=== PATIENT | female | born 1935 | race Caucasian/White ===

== ENCOUNTER → 2016-12-11 | Outpatient (CLI) | payer MEDICARE ==
[~2016-12-11] MED LIST: ASCO500C14; ASP81CT; CALC-793; CLD600T; CNDS16T; DLT120CCR; E400C; GARLIC 500 MG; GLUC1TAB60; HYDR-757 PO; LOSA100T28 PO; MULT1TAB63; NIA500ERT; OXYC-197 PO; RANI-425 PO; RNT150T; TRZ50T; [UNRECOGNIZED DRUG - OTHER]; [UNRECOGNIZED DRUG - OTHER]; [UNRECOGNIZED DRUG - OTHER]
--- NOTE | 2016-12-11 16:31 | Diagnostic Imaging Report ---
INDICATION: Fall. Trauma to the face and nose. COMPARISON: None. FINDINGS: Examination of the facial bones fails to reveal evidence of fracture, dislocation or other osseous abnormality. The accessory nasal sinuses are clear. IMPRESSION: Negative facial bones. Dictated by: Dictated on workstation # [id number]
== END ==
LOC: RAD 15:27
DX: R51 Headache (principal)
CPT/HCPCS: 70150

== ENCOUNTER → 2017-01-02 | Day surgery (SDC) | payer MEDICARE ==
[~2017-01-02] VITALS: Ht 157.5 cm; Wt 59.0 kg
[~2017-01-02] MED LIST changes: +PEN G BENZ (BICILLIN LA) 1.2 M UN/2 ML SYR IM ONE
--- OUTSIDE RECORDS SUMMARY | 2017-01-02 15:27 | XMS REPORT | Clinical Summary ---
Author Author [facility] Organization [facility] Address Unknown Phone Unavailable Care Team Providers Care Armature Varnisher Name Role Phone PCP Unavailable Source Comments Some departments are not documenting in the electronic medical record. If you do not see the information that you expected, contact Release of Information in the Health Information Management department at [phone] for further assistance in locating additional records.[facility] Allergies Active Allergy Reactions Severity Noted Date Comments Nathanael Inhibitors JOINT PAIN 04/06/2012 Won't control Fluticasone-Salmeterol SHORTNESS OF BREATH 04/08/2012 Makes breathing worse Albuterol SEE COMMENTS 04/06/2012 Shaking inside extensively Beta-Blockers JOINT PAIN 04/06/2012 Won't control (Beta-Adrenergic Blocking Agts) Levofloxacin SEE COMMENTS 04/06/2012 Extreme Attacks muscles and joints Niacin HIVES, SEE COMMENTS 04/06/2012 Burning Unclassified Drug SEE COMMENTS 04/06/2012 Calcium Channel Blockers Rxfncnt-Orr-Sms Reductase JOINT PAIN 04/06/2012 Inhibitors Pseudoephedrine Hcl SEE COMMENTS 04/06/2012 Blood pressure shoots up Tetracyclines SEE COMMENTS 04/06/2012 Extreme Attacks muscles and joints Current Medications Prescription Sig. Disp. Refills Start End Date Status Date CANDESARTAN CILEXETIL Take 32 mg by mouth Active (ATACAND PO) daily. Aspirin 81 mg Tab Take by mouth. Active MULTIVITAMIN Take 1 Tab by mouth Active W-MINERALS/LUTEIN daily. (CENTRUM SILVER PO) ascorbic acid (VITAMIN C) Take 500 mg by mouth Active 500 mg tablet daily. CALCIUM CARBONATE Take 1 Tab by mouth twice Active (CALCIUM 600 PO) daily. vitamin A 25,000 unit cap Take 25,000 Units by Active mouth daily. Betacarotene coQ10 (ubiquinol) 100 mg Take 1 Cap by mouth Active cap daily. ERGOCALCIFEROL (VITAMIN Take 400 mg by mouth Active D2) (VITAMIN D PO) twice daily. ipratropium (ATROVENT) 1-2 sprays each nostril 1 Bottle 3 04/08/19 Active 0.03 % nasal up to three times a day, 13 sprayIndications: Chronic use just prior to meals. 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 Reactions occurred in early with onset less than one week postoperatively. Reaction included erythema, swelling and pain in the distal foot which resolved within 2 weeks of implant removal. She has had contact irritation with costume jewelry, but has tolerated dental implants (lummi and gold) in the past. 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 Chronic rhinitis 04/08/2012 Overview: Onset after laser surgery to remove precancerous lesion from nasal bridge about 5 years ago. No seasonal pattern. Previous allergic respiratory disease (asthma and allergic rhinitis) in the s. She was referred to an [employer] Operator and had aeroallergen testing that was positive to multiple allergens. Symptoms resolved after relocating to [place]. Rhinorrhea worse with eating, suggestive of gustatory rhinitis. - Family History Relation Name Status Comments Brother Ricco Alive Brother Navdeep Daughter Britany Alive Daughter Huyen Alive Daughter Kirstie Alive Father Juan Mother Mable Other Sister Lorna Alive Son Julius Alive Social History Tobacco Use Types Packs/Day Years Used Date Never Smoker Alcohol Use Drinks/Week oz/Week Comments No Sex Assigned at Date Recorded Not on file Last Filed Vital Signs Vital Sign Reading Time Taken Blood Pressure 151/79 04/08/2012 2:20 PM SOLUTION MIXER Pulse 84 04/08/2012 2:20 PM SOLUTION MIXER Temperature 36.6 C (97.9 F) 04/08/2012 2:20 PM SOLUTION MIXER Respiratory Rate 18 04/08/2012 2:20 PM SOLUTION MIXER Oxygen Saturation - - Inhaled Oxygen - - Concentration Weight 68.5 kg (151 lb) 04/08/2012 2:20 PM SOLUTION MIXER Height 154.9 cm (5' 1") 04/08/2012 2:20 PM SOLUTION MIXER Body Mass Index 28.53 04/08/2012 2:20 PM SOLUTION MIXER Plan of Treatment Health Maintenance Due Date Last Done Comments PHYSICAL (COMPREHENSIVE) 02[birth year]01/1942 EXAM PERTUSSIS VACCINE 02/01/1947 TETANUS VACCINE 02/01/1953 SHINGLES VACCINE 1996 OSTEOPOROSIS SCREENING 02/01/2001 PREVNAR/PNEUMOVAX (#1) 02/01/2001 INFLUENZA VACCINE 10/01/2016 Results Not on filefrom Last 3 Months
--- OUTSIDE RECORDS SUMMARY | 2017-01-02 15:32 | XMS REPORT | Continuity of Care Document ---
Author Author [facility] Organization [facility] Address Unknown Phone Unavailable Allergies Active Description Code Type Severity Reaction Onset Reported/Identified Relationship to Patient Clinical Status Yes atenolol [id number] Drug Allergy Unknown N/A 04/07/2008 Yes cholestyramine [id number] Drug Allergy Unknown N/A 04/07/2008 Yes ezetimibe [id number] Drug Allergy Unknown N/A 04/07/2008 Yes rosuvastatin [id number] Drug Allergy Unknown N/A 04/07/2008 Yes tetracycline [id number] Drug Allergy Unknown N/A 04/07/2008 Yes albuterol [id number] Drug Allergy Mild N/A 04/07/2009 Yes ALYSON Inhibitors [id number] Drug Allergy Mild N/A 04/08/2009 Yes BETA BLOCKERS BETA BLOCKERS Mild N/A 04/08/2009 Yes pseudoephedrine [id number] Drug Allergy Mild N/A 04/08/2009 Yes STATINS STATINS Mild N/A 04/08/2009 Yes Calcium Channel Blocking Agent Dilt [id number] Drug Allergy Mild N/A 01/02/2015 Yes levofloxacin [id number] Drug Allergy Mild N/A 01/02/2015 Medications Problems Date Dx Coded Attending Type Code Diagnosis Diagnosed By 02/23/2014 BLANCA NEGRON APRN Ot 723.1 02/23/2014 BLANCA NEGRON SALES ADMINISTRATION SPECIALIST Ot 847.0 02/23/2014 BLANCA NEGRON SALES ADMINISTRATION SPECIALIST Ot 850.9 02/23/2014 BLANCA NEGRON SALES ADMINISTRATION SPECIALIST Ot E000.8 02/23/2014 BLANCA NEGRON SALES ADMINISTRATION SPECIALIST Ot E888.9 03/28/2014 BLANCA NEGRON SALES ADMINISTRATION SPECIALIST Ot 784.0 03/28/2014 BLANCA NEGRON SALES ADMINISTRATION SPECIALIST Ot V15.59 01/02/2015 GARRY ANDRADE, MAURICIO Mckee Ot I10 01/02/2015 GARRY ANDRADE, MAURICIO T Ot R11.0 01/02/2015 GARRY ANDRADE, MAURICIO T Ot R51 06/29/2015 BLANCA NEGRON APRN Ot M19.032 PRIMARY OSTEOARTHRITIS, LEFT WRIST 06/29/2015 BLANCA NEGRON APRN Ot S52.532A COLLES' FRACTURE OF LEFT RADIUS, INIT FO 06/29/2015 BLANCA NEGRON APRN Ot W01.0XXA FALL SAME LEV FROM SLIP/TRIP W/O STRIKE 06/29/2015 BLANCA NEGRON APRN Ot Y92.017 GARDEN OR YARD IN SINGLE-FAMILY ( PRIVATE 06/29/2015 BLANCA NEGRON SALES ADMINISTRATION SPECIALIST Ot Y93.H2 ACTIVITY, GARDENING AND LANDSCAPING 06/29/2015 BLANCA NEGRON APRN Ot Y99.8 OTHER EXTERNAL CAUSE STATUS 06/30/2015 BALNCA NEGRON SALES ADMINISTRATION SPECIALIST Ot M19.032 PRIMARY OSTEOARTHRITIS, LEFT WRIST 06/30/2015 BLANCA NEGRON SALES ADMINISTRATION SPECIALIST Ot S52.532A COLLES' FRACTURE OF LEFT RADIUS, INIT FO 06/30/2015 BLANCA NEGRON APRN Ot W01.0XXA FALL SAME LEV FROM SLIP/TRIP W/O STRIKE 06/30/2015 BLANCA NEGRON SALES ADMINISTRATION SPECIALIST Ot Y92.017 GARDEN OR YARD IN SINGLE-FAMILY ( PRIVATE 06/30/2015 BLANCA NEGRON APRN Ot Y93.H2 ACTIVITY, GARDENING AND LANDSCAPING 06/30/2015 BLANCA NEGRON SALES ADMINISTRATION SPECIALIST Ot Y99.8 OTHER EXTERNAL CAUSE STATUS 07/01/2015 JEAN PIERRE BANDA MD Ot S52.502D UNSP FX THE LOW END LEFT RAD, SUBS FOR C 07/03/2015 JEAN PIERRE BANDA MD Ot S52.502D UNSP FX THE LOW END LEFT RAD, SUBS FOR C 12/17/2016 LAUREN MARTINEZ MD Ot R51 HEADACHE Procedures Results Encounters ACCT No. Visit Date/Time Discharge Status Pt. Type Provider Facility Loc./Unit Complaint [id number] 12/11/2016 15:27:00 2016 23:59:59 CLS Outpatient LAUREN MARTINEZ MD [facility] RAD R51 [id number] 07/01/2015 19:44:00 2015 20:06:00 DIS Emergency JEAN PIERRE BANDA MD [facility] ER [id number] 06/29/2015 15:50:00 2015 17:46:00 DIS Emergency BLANCA NEGRON APRN [facility] ER [id number] 01/02/2015 19:24:00 2014 21:22:00 DIS Emergency MAURICIO CASTAÑEDA MD [facility] ER [id number] 03/28/2014 17:25:00 2014 18:56:00 DIS Emergency BLANCA NEGRON APRN [facility] ER [id number] 02/23/2014 19:11:00 2013 20:01:00 DIS Emergency BLANCA NEGRON APRN [facility] ER [id number] 02/05/2013 10:20:00 2012 23:59:59 CLS Outpatient [id number] 01/02/2015 20:03:00 Document Registration
--- NOTE | 2017-01-02 16:02 | Diagnostic Imaging Report ---
INDICATION: Acute bronchitis. PA and lateral views of the chest are obtained. Comparison is made to study of 01/02/2015. FINDINGS: Heart size and pulmonary vascularity are within normal limits. There is air trapping, bilaterally. There is probable hiatal hernia noted in the midline of the lower chest. No pneumothorax, consolidation, or significant pleural fluid is seen. Prominent spurring is noted about the inferior left humeral head. IMPRESSION: No acute abnormality is identified. Density in the lower chest is likely related to hiatal hernia. This could be confirmed with upper GI series. Otherwise, no acute abnormality is identified. Dictated by: Dictated on workstation # [id number]
[2017-01-02 16:19] VITALS: BP 168/99
--- NOTE | 2017-01-02 16:19 | Diagnostic Imaging Report ---
AP and frog lateral views of the left hip. INDICATION: Left hip pain. Fall. FINDINGS: There are moderate osteoarthritis changes with subchondral sclerosis and mild to moderate joint space loss seen in the hip. No fracture or dislocation. No radiopaque foreign body. IMPRESSION: Moderate left hip osteoarthritis. Dictated by: Dictated on workstation # [id number]
[2017-01-02 16:34] VITALS: BP 168/99
== END | disposition home or self-care (01) ==
LOC: SDC 14:49 → RAD 14:49
DX: J20.9 Acute bronchitis, unspecified (principal); M16.12 Unilateral primary osteoarthritis, left hip
CPT/HCPCS: 71020; 73502

== ENCOUNTER → 2017-04-15 | Outpatient (CLI) | payer MEDICARE ==
[~2017-04-15] MED LIST changes: -PEN G BENZ (BICILLIN LA) 1.2 M UN/2 ML SYR IM ONE
--- NOTE | 2017-04-15 14:51 | Diagnostic Imaging Report ---
INDICATION: Back pain and left lower extremity radiculopathy. TIME OF EXAM: 2:38 PM FINDINGS: Three views of the lumbar spine demonstrate left convexity lumbar scoliotic curvature. There is diffuse demineralization. The vertebral body heights appear to be maintained. No acute compression fracture is identified. There is significant multilevel degenerative disc disease with disc space narrowing and marginal spurring. The abdominal aorta is heavily calcified. IMPRESSION: Lumbar scoliosis and spondylosis. No acute bony abnormality is detected. Dictated by: Dictated on workstation # [id number]
== END ==
LOC: RAD 14:06
DX: M47.26 Other spondylosis with radiculopathy, lumbar region (principal); M41.86 Other forms of scoliosis, lumbar region
CPT/HCPCS: 72100

== ENCOUNTER → 2017-04-28 | Outpatient (CLI) | payer MEDICARE ==
--- NOTE | 2017-04-28 13:07 | Diagnostic Imaging Report ---
CLINICAL INDICATION: Patient having pain in left sciatica with pain shooting down her leg. EXAM: MRI of the lumbar spine performed without IV contrast. Sequences include sagittal T2, sagittal T1, sagittal T2 fat-sat, and axial T2. COMPARISON: MRI of the lumbar spine without contrast dated 12/14/2009. FINDINGS: There is no evidence of acute lumbar spine fracture. Again seen small area of high T2, mixed high/low T1 signal involving the right side of the L1 vertebral body is seen which may represent an atypical intraosseous hemangioma. There is no significant change to the 6 mm low T1/low T2 signal area involving the left posterior aspect of the L4 vertebral body, likely benign. There is resolution of the previously seen Modic type I degenerative signal changes involving the L1-L2 and L3-L4 endplate regions. There is no other significant vertebral body signal abnormality. Limited visualization of distal thoracic spinal cord, conus medullaris, and cauda equina nerve roots is unremarkable. The conus medullaris tip is seen at the L1-L2 intervertebral level. There is no significant paraspinal soft tissue abnormality. There are hypertrophic vertebral body spurs and facet arthropathy again noted. There is mild left curvature of the lumbar spine also seen which has slightly progressed. T10-T11: There is bilateral facet arthropathy. There is at least moderate left neuroforaminal narrowing and mild central canal narrowing. This level is not completely visualized on the prior study for comparison. T11-T12: Again seen broad Schmorl's node involving the inferior aspect of T11 endplate. There is bilateral facet arthropathy (left side more than the right) and ligamentum flavum buckling which is not significantly changed. There is a diffuse disc bulge which has minimally progressed in the left paracentral region. There is moderate central canal narrowing which has slightly progressed. There is at least moderate left neuroforaminal narrowing which has slightly progressed. There is no significant right neuroforaminal narrowing. T12-L1: There is no significant change to the diffuse disc bulge with severe loss of intervertebral disc height and endplate irregularity. There is stable mild to moderate central canal narrowing. There is no significant neuroforaminal narrowing. L1-L2: There is no significant change to the diffuse disc bulge with severe loss of intervertebral disc height and endplate irregularity. There is stable moderate bilateral facet arthropathy. There is at least mild right neuroforaminal narrowing and no significant left neuroforaminal narrowing which is not significantly changed. There is moderate central canal narrowing which is stable. L2-L3: Stable grade 1 retrolisthesis of L2 on L3. Stable diffuse disc bulge and mild bilateral facet arthropathy. Stable moderate right neuroforaminal narrowing and mild left neuroforaminal narrowing. There is mild central canal narrowing. L3-L4: Stable grade 1 retrolisthesis of L3 on L4. There is progression of disc disease with now progression of endplate irregularity and moderate to severe loss of intervertebral disc height. There is slight increased size of the far left lateral and foraminal disc herniation. There is severe left neuroforaminal narrowing still present and severe right neuroforaminal narrowing. There is progression of severe bilateral facet arthropathy (right side more than the left). There is mild central canal narrowing. L4-L5: There is interval development of subtle grade 1 anterolisthesis of L4 on L5. There is progression of diffuse disc bulge with slight increased size of the disc bulges into the foraminal regions bilaterally. There is severe bilateral facet arthropathy/hypertrophy which has slightly progressed. There is ligamentum flavum buckling which has progressed. There is now severe central canal narrowing, moderate right neuroforaminal narrowing and severe left neuroforaminal narrowing which has progressed. L5-S1: There is no significant disc disease. There is stable severe bilateral facet arthropathy/hypertrophy. There is no significant central spinal canal or neuroforaminal narrowing. IMPRESSION: 1: There is overall slight progression of severe multilevel lumbar spine degenerative disease and mild lumbar levoscoliosis. 2: There is progression of L3-L4 disc disease with progression of facet arthropathy. There is stable severe bilateral neuroforaminal narrowing. 3: There is development of subtle grade 1 anterolisthesis of L4 on L5 with progression of disc disease, facet arthropathy and ligamentum flavum buckling. There is now severe central canal narrowing, moderate right neuroforaminal narrowing and severe left neuroforaminal narrowing which has progressed. 4: Stable grade 1 anterolisthesis of L2 on L3 and L3 on L4. Dictated by: Dictated on workstation # [id number]
== END ==
LOC: RAD 11:00
DX: M48.061 Spinal stenosis, lumbar region without neurogenic claudication (principal); M47.816 Spondylosis without myelopathy or radiculopathy, lumbar region; M41.86 Other forms of scoliosis, lumbar region; M46.87 Other specified inflammatory spondylopathies, lumbosacral region; M43.16 Spondylolisthesis, lumbar region
CPT/HCPCS: 72148

== ENCOUNTER 2017-09-01 16:40 | Outpatient (CLI) | payer MEDICARE ==
[~2017-09-01] VITALS: Ht 157.5 cm; Wt 59.0 kg
[2017-09-01 17:05] VITALS: BP 192/93
[2017-09-01] MEDS ORDERED: NF-VITD400 PO (17:26)
[2017-09-01] MEDS ORDERED: TRAZ-189 PO (17:26)
[2017-09-01] MEDS ORDERED: GLUC100016 PO (17:26)
[2017-09-01] MEDS ORDERED: MULT1TAB69 PO (17:26)
[2017-09-01] MEDS ORDERED: BETA2500 PO (17:26)
[2017-09-01] MEDS ORDERED: CALC600T12 PO (17:26)
[2017-09-01] MEDS ORDERED: CURAMED PO (17:26)
[2017-09-01] MEDS ORDERED: UBID100C17 PO (17:26)
[2017-09-01] MEDS ORDERED: PEN G BENZ (BICILLIN LA) 1.2 M UN/2 ML SYR IM ONE (17:30)
--- NOTE | 2017-09-01 18:03 | Diagnostic Imaging Report ---
INDICATION: Cough. COMPARISON: 01/02/2017. FINDINGS: Two views of the chest are obtained. Heart size is normal. The pulmonary vessels appear unremarkable. Mild prominence of the left hilum is unchanged. There is no pneumothorax, mediastinal widening, or pleural fluid. There is however a moderate hiatal hernia which is similar to the prior study. Chronic findings of COPD are again noted. Some scarring at the left lung base is stable. The lungs are otherwise clear. There are degenerative changes in the spine. IMPRESSION: Stable findings of COPD and hiatal hernia. No new or acute abnormality is seen in the chest. Dictated by: Dictated on workstation # [id number]
== END 2017-09-01 17:40 | disposition home or self-care (01) ==
LOC: SDC 16:40
DX: J18.9 Pneumonia, unspecified organism (principal); R05 Cough
CPT/HCPCS: 71046; 96372

== ENCOUNTER 2018-09-19 21:54 | Emergency (ER) | payer MEDICARE ==
[~2018-09-19] VITALS: Ht 157.5 cm; Wt 58.5 kg
[~2018-09-19 21:54] MED LIST changes: +BETA2500 PO; +CALC600T12 PO; +CURAMED PO; +GLUC100016 PO; -LOSA100T28 PO; +LOSA100T57 PO; +MULT1TAB69 PO; +NF-VITD400 PO; -OXYC-197 PO; +OXYC1TAB87 PO; -RANI-425 PO; +RANI-591 PO; +TRAZ-222 PO; +UBID100C17 PO
--- NOTE | 2018-09-19 22:01 | NUR ---
PT HERE WITH " ". PT ALERT GCS 15. PT RELATES SHE RECEIVED STEROID SHOTS IN BOTH SHOULDERS LAST FRIDAY. SINCE THEN PT C/O " FEELING STRANGE". "CANT SLEEP". PT ALSO BEEN C/O CHEST " ACHES" DENIES THIS C/O CURRENTLY SINCE GETTING THE SHOTS AND ALSO BEEN C/O DYSPNEA " HARD TO BREATH" WELL SINCE THE SHOTS. PT QUITE TALKATIVE AND NO AUTE SIGHNS OF DYSPNEA NOTED. PT DOES HAVE A DRY NONPRODUCTIVE COUGH IN ER. PT DENIES ABD PAIN AND N/V/D. LUNGS EQUAL CTA BILATERALLY. ABD SOFT NONDISTENDED NEG PAIN WITH PALPATION. PT HAS 2 PLUS EDEMA BILATERAL LOWER LEGS NOTED. TELE APPLIED SHOWS SR 79. DONE ANJEL PT AT 2210.
--- NOTE | 2018-09-19 22:30 | NUR ---
PT RELATES SHE HAS THE CHEST PAIN " ALL THE TIME"
[2018-09-19 22:37] LABS: BASOPHILS % (AUTO) 0 % (0-10); EOSINOPHILS # (AUTO) 0.1 10^3/uL (0.0-0.3); EOSINOPHILS % (AUTO) 1 % (0-10); HEMATOCRIT 35 % (35-52); HEMOGLOBIN 11.4 G/DL (11.5-16.0); LYMPHOCYTES # (AUTO) 2.8 X 10^3 (1.0-4.0); LYMPHOCYTES % (AUTO) 37 % (12-44); MEAN CORPUSCULAR HEMOGLOBIN 32 PG (25-34); MEAN CORPUSCULAR HGB CONC 32 G/DL (32-36); MEAN CORPUSCULAR VOLUME 99 FL (80-99); MEAN PLATELET VOLUME 10.3 FL (7.4-10.4); MONOCYTES # (AUTO) 0.8 X 10^3 (0.0-1.0); MONOCYTES % (AUTO) 11 % (0-12); NEUTROPHILS % (AUTO) 52 % (42-75); PLATELET COUNT 221 10^3/uL (130-400); RED CELL DISTRIBUTION WIDTH 13.5 % (10.0-14.5); WHITE BLOOD COUNT 7.8 10^3/uL (4.3-11.0)
[2018-09-19] MEDS ORDERED: ASPIRIN 81 MG CHEW (CHILDREN'S ASA) ONE (22:41)
[2018-09-19] MEDS ORDERED: NITROGLYCERIN 0.4 MG SL TABS BTL 25'S SL ONE (22:42)
--- NOTE | 2018-09-19 22:43 | NUR ---
EKG BY ME TO BY
--- NOTE | 2018-09-19 22:52 | NUR ---
V/O DR EARLIER ASA AND NITRO.
--- NOTE | 2018-09-19 22:52 | NUR ---
BEFORE ASA AND NITRO. PT DENIED CHEST PAIN, CHEST ACHINESS, AND CHEST PRESSURE. I WENT TO ASK ALL OVER AGAIN AND PT SAID SHE HAD SOME CHEST PRESSURE. I GAVE ASA AND NITRO
[2018-09-19 22:53] LABS: INR 0.9 (0.8-1.4); PROTHROMBIN TIME PATIENT 12.1 SEC (12.2-14.7)
[2018-09-19 23:02] LABS: ALANINE AMINOTRANSFERASE 11 U/L (0-55); ALKALINE PHOSPHATASE 74 U/L (40-136); BILIRUBIN,TOTAL 0.2 MG/DL (0.1-1.0); BUN/CREATININE RATIO 29; CALCIUM 9.3 MG/DL (8.5-10.1); CARBON DIOXIDE 24 MMOL/L (21-32); CHLORIDE 108 MMOL/L (98-107); CREATININE SERUM 0.89 MG/DL (0.60-1.30); GFR ESTIMATED > 60; GLUCOSE 91 MG/DL (70-105); MAGNESIUM 2.1 MG/DL (1.8-2.4); POTASSIUM 3.9 MMOL/L (3.6-5.0); SODIUM 145 MMOL/L (135-145); TOTAL PROTEIN 6.5 GM/DL (6.4-8.2)
--- NOTE | 2018-09-19 23:15 | NUR ---
pt denies chest pain and pressure and achiness. says " i feel better then when i came in."
[2018-09-19 23:21] VITALS: BP 122/81
--- NOTE | 2018-09-19 23:21 | NUR ---
report to flower vargas.
[2018-09-19] MEDS ORDERED: ASPIRIN 81 MG CHEW (CHILDREN'S ASA) PO ONE (23:30)
[2018-09-19] MEDS ORDERED: NITROGLYCERIN 0.4 MG SL TABS BTL 25'S SL PRN (23:30)
--- OUTSIDE RECORDS SUMMARY | 2018-09-19 23:30 | XMS REPORT | Clinical Summary ---
Author Author [facility] Organization [facility] Address Unknown Phone Unavailable Care Team Providers Care Process Steward Name Role Phone CandepritiJeanette DO Unavailable Andrew Zaidi MD PCP Source Comments Some departments are not documenting in the electronic medical record. If you d o not see the information that you expected, contact Release of Information in [facility] [employer] Information Management department at [phone] for further assistan ce in locating additional records.[facility] Allergies Comments Active Allergy Reactions Severity Noted Date Won't control Nathanael Inhibitors JOINT PAIN 04/06/2012 Makes breathing worse Fluticasone SHORTNESS OF 04/08/2012 Propion-Salmeterol BREATH Shaking inside extensively Albuterol SEE COMMENTS 04/06/2012 Won't control Beta-Blockers JOINT PAIN 04/06/2012 (Beta-Adrenergic Blocking Agts) Extreme Attacks muscles and joints Levofloxacin SEE COMMENTS 04/06/2012 Burning Niacin HIVES, SEE 04/06/2012 COMMENTS Calcium Channel Blockers Unclassified Drug SEE COMMENTS 04/06/2012 Pqnlmha-Xgh-Maq Reductase JOINT PAIN 04/06/2012 Inhibitors Blood pressure shoots up Pseudoephedrine Hcl SEE COMMENTS 04/06/2012 Extreme Attacks muscles and joints Tetracyclines SEE COMMENTS 04/06/2012 Medications End Date Status Medication Sig Dispensed Refills Start Date Active CANDESARTAN CILEXETIL Take 32 mg by 0 (ATACAND PO) mouth daily. Active Aspirin 81 mg Tab Take by 0 mouth. Active MULTIVITAMIN Take 1 Tab by 0 W-MINERALS/LUTEIN mouth daily. (CENTRUM SILVER PO) Active ascorbic acid (VITAMIN C) Take 500 mg 0 500 mg tablet by mouth daily. Active CALCIUM CARBONATE Take 1 Tab by 0 (CALCIUM 600 PO) mouth twice daily. Active vitamin A 25,000 unit cap Take 25,000 0 Units by mouth daily. Betacarotene Active coQ10 (ubiquinol) 100 mg Take 1 Cap by 0 cap mouth daily. Active ERGOCALCIFEROL (VITAMIN Take 400 mg 0 D2) (VITAMIN D PO) by mouth twice daily. Active ipratropium (ATROVENT) 1-2 sprays 1 Bottle 3 0.03 % nasal each nostril 3 sprayIndications: Chronic up to three rhinitis times a day, use just prior to meals. Active Problems Problem Noted Date Allergy to [...] costume jewelry, but has tolerated dental implants ([place] and gold) in the past. 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 Chronic rhinitis 04/08/2012 Overview: Onset after laser surgery to remove precancerous lesion from nasal bridge about 5 years ago. No seasonal pattern. Previous allergic respiratory disease (asthma and allergic rhinitis) in the 1970's. 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 Symptoms resolved after relocating to [place]. Rhinorrhea worse with eating, suggestive of gustatory rhinitis. - Family History Relation Name Status Comments Brother Ricco Alive Brother Navdeep Daughter Britany Alive Daughter Huyen Alive Daughter Kirstie Alive Father Juan Mother Mable Other Sister Lorna Alive Son Julius Alive Social History Date Tobacco Use Types Packs/Day Years Used Never Smoker Drinks/Week oz/Week Comments Alcohol Use No Sex Assigned at Date Recorded Not on file Industry Job Start Date Occupation Not on file Not on file Not on file Travel End Travel History Travel Start No recent travel history available. Last Filed Vital Signs Reading Time Taken Comments Vital Sign 151/79 04/08/2012 2:20 PM IMMIGRATION MANAGER Blood Pressure 84 04/08/2012 2:20 PM IMMIGRATION MANAGER Pulse 36.6 C (97.9 F) 04/08/2012 2:20 PM IMMIGRATION MANAGER Temperature 18 04/08/2012 2:20 PM IMMIGRATION MANAGER Respiratory Rate - - Oxygen Saturation - - Inhaled Oxygen Concentration 68.5 kg (151 lb) 04/08/2012 2:20 PM IMMIGRATION MANAGER With shoes Weight 154.9 cm (5' 1") 04/08/2012 2:20 PM IMMIGRATION MANAGER Height 28.53 04/08/2012 2:20 PM IMMIGRATION MANAGER Body Mass Index Plan of Treatment Health Maintenance Due Date Last Done Comments PHYSICAL (COMPREHENSIVE) 02[birth year]01/1942 EXAM DTAP/TDAP VACCINES (1 - 02/01/1954 Tdap) SHINGLES RECOMBINANT 02/01/1986 VACCINE (1 of 2) OSTEOPOROSIS 02/01/2001 SCREENING/MONITORING PNEUMONIA (PCV13/PPSV23) 02/01/2001 VACCINES (1 of 2 - PCV13) INFLUENZA VACCINE 12/01/2018 Results Not on filefrom Last 3 Months Advance Directives Patient Jewel Hole Gauger Explanation Type Date Recorded Advance Directive/DPOA
--- OUTSIDE RECORDS SUMMARY | 2018-09-19 23:31 | XMS REPORT | Continuity of Care Document ---
Author Organization Unknown Address Unknown Allergies Active Description Code Type Severity Reaction Onset Reported/Identified Relationship to Patient Clinical Status Yes atenolol [id number] Drug Allergy Unknown N/A 04/07/2008 Yes cholestyramine [id number] Drug Allergy Unknown N/A 04/07/2008 Yes ezetimibe [id number] Drug Allergy Unknown N/A 04/07/2008 Yes rosuvastatin [id number] Drug Allergy Unknown N/A 04/07/2008 Yes tetracycline [id number] Drug Allergy Unknown N/A 04/07/2008 Yes albuterol [id number] Drug Allergy Mild N/A 04/07/2009 Yes ALYSON Inhibitors [id number] Drug Allergy Mild N/A 04/08/2009 Yes BETA BLOCKERS BETA BLOCKERS Mild N/A 04/08/2009 Yes pseudoephedrine [id number] Drug Allergy Mild N/A 04/08/2009 Yes STATINS STATINS Mild N/A 04/08/2009 Yes Calcium Channel Blocking Agent Dilt [id number] Drug Allergy Mild N/A 01/02/2015 Yes levofloxacin [id number] Drug Allergy Mild N/A 01/02/2015 Yes Niacin Preparations [id number] Drug Allergy Moderate HIVES 09/01/2017 Yes lorazepam [id number] Drug Allergy Unknown N/A 09/01/2017 Medications There is no data. Problems Date Dx Coded Attending Type Code Diagnosis Diagnosed By 02/23/2014 BLANCA NEGRON ICHTHYOLOGY TEACHER Ot 723.1 02/23/2014 BLANCA NEGRON ICHTHYOLOGY TEACHER Ot 847.0 02/23/2014 BLANCA NEGRON ICHTHYOLOGY TEACHER Ot 850.9 02/23/2014 BLANCA NEGRON ICHTHYOLOGY TEACHER Ot E000.8 02/23/2014 BLANCA NEGRON ICHTHYOLOGY TEACHER Ot E888.9 03/28/2014 BLANCA NEGRON ICHTHYOLOGY TEACHER Ot 784.0 03/28/2014 BLANCA NEGRON ICHTHYOLOGY TEACHER Ot V15.59 01/02/2015 GARRY ANDRADE, MAURICIO Mckee Ot I10 01/02/2015 GARRY ANDRADE, MAURICIO Mckee Ot R11.0 01/02/2015 GARRY ANDRADE, MAURICIO Mckee Ot R51 06/29/2015 BLANCA NEGRON APRN Ot M19.032 PRIMARY OSTEOARTHRITIS, LEFT WRIST 06/29/2015 BLANCA NEGRON APRN Ot S52.532A COLLES' FRACTURE OF LEFT RADIUS, INIT FO 06/29/2015 BLANCA NEGRON APRN Ot W01.0XXA FALL SAME LEV FROM SLIP/TRIP W/O STRIKE 06/29/2015 BLANCA NEGRON APRN Ot Y92.017 GARDEN OR YARD IN SINGLE-FAMILY (PRIVATE 06/29/2015 BLANCA NEGRON APRN Ot Y93.H2 ACTIVITY, GARDENING AND LANDSCAPING 06/29/2015 BLANCA NEGRON APRN Ot Y99.8 OTHER EXTERNAL CAUSE STATUS 06/30/2015 BLANCA NEGRON APRN Ot M19.032 PRIMARY OSTEOARTHRITIS, LEFT WRIST 06/30/2015 BLANCA NEGRON APRN Ot S52.532A COLLES' FRACTURE OF LEFT RADIUS, INIT FO 06/30/2015 BLANCA NEGRON APRN Ot W01.0XXA FALL SAME LEV FROM SLIP/TRIP W/O STRIKE 06/30/2015 BLANCA NEGRON APRN Ot Y92.017 GARDEN OR YARD IN SINGLE-FAMILY (PRIVATE 06/30/2015 BLANCA NEGRON APRN Ot Y93.H2 ACTIVITY, GARDENING AND LANDSCAPING 06/30/2015 BLANCA NEGRON APRN Ot Y99.8 OTHER EXTERNAL CAUSE STATUS 07/01/2015 VERONIKA ANDRADE, JEAN PIERRE Mendez Ot S52.502D UNSP FX THE LOW END LEFT RAD, SUBS FOR C 07/03/2015 JEAN PIERRE BANDA MD Ot S52.502D UNSP FX THE LOW END LEFT RAD, SUBS FOR C 12/17/2016 MICHELLE ANDRADE, LAUREN Willis Ot R51 HEADACHE 01/03/2017 MICHELLE ANDRADE, LAUREN Willis Ot R51 HEADACHE 01/03/2017 MICHELLE ANDRADE, LAUREN Willis Ot J20.9 ACUTE BRONCHITIS, UNSPECIFIED 01/03/2017 MICHELLE ANDRADE, LAUREN Willis Ot M16.12 UNILATERAL PRIMARY OSTEOARTHRITIS, LEFT 01/09/2017 MICHELLE ANDRADE, LAUREN D Ot R51 HEADACHE 01/27/2017 MICHELLE ANDRADE, LAUREN D Ot J20.9 ACUTE BRONCHITIS, UNSPECIFIED 01/27/2017 MICHELLE ANDRADE, LAUREN D Ot M16.12 UNILATERAL PRIMARY OSTEOARTHRITIS, LEFT 01/30/2017 MICHELLE ANDRADE, LAUREN D Ot J20.9 ACUTE BRONCHITIS, UNSPECIFIED 01/30/2017 MICHELLE ANDRADE, LAUREN D Ot M16.12 UNILATERAL PRIMARY OSTEOARTHRITIS, LEFT 02/21/2017 MICHELLE ANDRADE, LAUREN D Ot J20.9 ACUTE BRONCHITIS, UNSPECIFIED 02/21/2017 MICHELLE ANDRADE LAUREN D Ot M16.12 UNILATERAL PRIMARY OSTEOARTHRITIS, LEFT 04/16/2017 MICHELLE ANDRADE, LAUREN D Ot M41.86 OTHER FORMS OF SCOLIOSIS, LUMBAR REGION 04/16/2017 MICHELLE ANDRADE LAUREN D Ot M47.26 OTHER SPONDYLOSIS WITH RADICULOPATHY, BENJA 04/21/2017 MICHELLE ANDRADE LAUREN D Ot M41.86 OTHER FORMS OF SCOLIOSIS, LUMBAR REGION 04/21/2017 MICHELLE ANDRADE LAUREN D Ot M47.26 OTHER SPONDYLOSIS WITH RADICULOPATHY, BENJA 04/29/2017 MICHELLE ANDRADE LAUREN D Ot M41.86 OTHER FORMS OF SCOLIOSIS, LUMBAR REGION 04/29/2017 MICHELLE ANDRADE LAUREN D Ot M43.16 SPONDYLOLISTHESIS, LUMBAR REGION 04/29/2017 MICHELLE ANDRADE, LAUREN D Ot M46.87 OT INFLAMMATORY SPONDYLOPATHIES, LUMBOS 04/29/2017 MICHELLE ANDRADE LAUREN D Ot M47.816 SPONDYLOSIS W/O MYELOPATHY OR RADICULOPA 04/29/2017 MICHELLE ANDRADE LAUREN D Ot M48.061 SPINAL STENOSIS, LUMBAR REGION WITHOUT N 05/04/2017 MICHELLE ANDRADE LAUREN D Ot M41.86 OTHER FORMS OF SCOLIOSIS, LUMBAR REGION 05/04/2017 MICHELLE ANDRADE LAUREN D Ot M43.16 SPONDYLOLISTHESIS, LUMBAR REGION 05/04/2017 MICHELLE ANDRADE LAUREN D Ot M46.87 OT INFLAMMATORY SPONDYLOPATHIES, LUMBOS 05/04/2017 MICHELLE ANDRADE LAUREN D Ot M47.816 SPONDYLOSIS W/O MYELOPATHY OR RADICULOPA 05/04/2017 MICHELLE ANDRADE LAUREN D Ot M48.061 SPINAL STENOSIS, LUMBAR REGION WITHOUT N 05/06/2017 MICHELLE ANDRADE LAUREN D Ot M41.86 OTHER FORMS OF SCOLIOSIS, LUMBAR REGION 05/06/2017 MICHELLE ANDRADE LAUREN D Ot M47.26 OTHER SPONDYLOSIS WITH RADICULOPATHY, BENJA 05/16/2017 MICHELLE ANDRADE LAUREN D Ot M41.86 OTHER FORMS OF SCOLIOSIS, LUMBAR REGION 05/16/2017 MICHELLE ANDRADE LAUREN D Ot M47.26 OTHER SPONDYLOSIS WITH RADICULOPATHY, BENJA 05/20/2017 MICHELLE ANDRADE LAUREN D Ot M41.86 OTHER FORMS OF SCOLIOSIS, LUMBAR REGION 05/20/2017 MICHELLE ANDRADE LAUREN D Ot M43.16 SPONDYLOLISTHESIS, LUMBAR REGION 05/20/2017 MICHELLE ANDRADE LAUREN D Ot M46.87 OTH INFLAMMATORY SPONDYLOPATHIES, LUMBOS 05/20/2017 MICHELLE ANDRADE LAUREN D Ot M47.816 SPONDYLOSIS W/O MYELOPATHY OR RADICULOPA 05/20/2017 MICHELLE ANDRADE LAUREN D Ot M48.061 SPINAL STENOSIS, LUMBAR REGION WITHOUT N 05/28/2017 MICHELLE ANDRADE, LAUREN D Ot M41.86 OTHER FORMS OF SCOLIOSIS, LUMBAR REGION 05/28/2017 MICHELLE ANDRADE LAUREN D Ot M43.16 SPONDYLOLISTHESIS, LUMBAR REGION 05/28/2017 MICHELLE ANDRADE LAUREN D Ot M46.87 OTH INFLAMMATORY SPONDYLOPATHIES, LUMBOS 05/28/2017 MICHELLE ANDRADE LAUREN D Ot M47.816 SPONDYLOSIS W/O MYELOPATHY OR RADICULOPA 05/28/2017 MICHELLE ANDRADE LAUREN D Ot M48.061 SPINAL STENOSIS, LUMBAR REGION WITHOUT N 09/01/2017 MICHELLE ANDRADE LAUREN D Ot J18.9 PNEUMONIA, UNSPECIFIED ORGANISM 09/01/2017 MICHELLE ANDRADE LAUREN D Ot R05 COUGH 09/02/2017 MICHELLE ANDRADE LAUREN D Ot J18.9 PNEUMONIA, UNSPECIFIED ORGANISM 09/02/2017 MICHELLE ANDRADE LAUREN D Ot R05 COUGH 09/02/2017 MICHELLE ANDRADE LAUREN D Ot J18.9 PNEUMONIA, UNSPECIFIED ORGANISM 09/02/2017 MICHELLE ANDRADE LAUREN D Ot R05 COUGH Procedures There is no data. Results There is no data. Encounters ACCT No. Visit Date/Time Discharge Status Pt. Type Provider Facility Loc./Unit Complaint [id number] 09/01/2017 16:40:00 09/01/2017 17:40:00 DIS Outpatient LAUREN MARTINEZ MD [facility] PNEUMONIA [id number] 04/28/2017 11:00:00 04/28/2017 23:59:59 CLS Outpatient LAUREN MARTINEZ MD [facility] RAD M54.5 LOW BACK PAIN [id number] 04/15/2017 14:06:00 04/15/2017 23:59:59 CLS Outpatient LAUREN MARTINEZ MD [facility] RAD M54.42 [id number] 01/02/2017 14:49:00 01/02/2017 23:59:59 CLS Outpatient LAUREN MARTINEZ MD [facility] M13.852,J20.9;SINUSITIS/BRONCHITIS [id number] 12/11/2016 15:27:00 12/11/2016 23:59:59 CLS Outpatient LAUREN MARTINEZ MD [facility] RAD R51 [id number] 07/01/2015 19:44:00 07/01/2015 20:06:00 DIS Emergency JEAN PIERRE BANDA MD [facility] ER [id number] 06/29/2015 15:50:00 06/29/2015 17:46:00 DIS Emergency BLANCA NEGRON APRN [facility] ER [id number] 01/02/2015 19:24:00 01/02/2015 21:22:00 DIS Emergency MAURICIO CASTAÑEDA MD [facility] ER [id number] 03/28/2014 17:25:00 03/28/2014 18:56:00 DIS Emergency BLANCA NEGRON APRN [facility] ER [id number] 02/23/2014 19:11:00 02/23/2014 20:01:00 DIS Emergency BLANCA NEGRON APRN [facility] ER [id number] 02/05/2013 10:20:00 02/05/2013 23:59:59 CLS Outpatient [id number] 01/02/2015 20:03:00 Document Registration
[2018-09-20] MEDS ORDERED: HOLD METFORMIN - RECEIVED CONTRAST 20 ML VIAL IV SCH (01:00)
[2018-09-20] MEDS ORDERED: IOHEXOL 350 MG/ML 150 ML (OMNIPAQUE 350) VIAL IV ONE (01:00)
[2018-09-20] MEDS ORDERED: NS 100 ML (IVPB) BAG IV ONE (01:00)
--- NOTE | 2018-09-20 02:01 | ED Chest Pain ---
General Chief Complaint: Respiratory Problems Stated Complaint: BLOOD PRESSURE, DIFICULTY BREATHING Nursing Triage Note: MULTIPLE C/OS 1 IS DYSPNEA Nursing Sepsis Screen: No Definite Risk Source: patient Exam Limitations: no limitations History of Present Illness Date Seen by Provider: Sep 19, 2018 Time Seen by Provider: 22:10 Initial Comments This 83-year-old woman presents to the emergency room with complaints of dyspnea and chest discomfort. She believes this may be related to adverse reaction from steroid shots she received in the office several days ago for arthritic pains. She also has had significant sleep disturbance. Blood pressure has been elevated. She describes her pain as a generalized pressure in the chest that has been ongoing for the past 2 days and actually seems to be improving. She rates the discomfort as 3/10 now. She took her blood pressure medications around 20:15. She denies ever having problems with steroids in the past. Allergies and Home Medications Allergies Coded Allergies: Niacin Preparations (Unverified Allergy, Intermediate, HIVES, 09/01/17) ALYSON Inhibitors (Unverified Allergy, Mild, 04/08/09) Calcium Channel Blocking Agent Dilt (Verified Allergy, Mild, 01/02/15) albuterol (Unverified Allergy, Mild, 04/07/09) levofloxacin (Verified Allergy, Mild, 01/02/15) pseudoephedrine (Unverified Allergy, Mild, 04/08/09) atenolol (Verified Allergy, Unknown, 04/07/08) cholestyramine (Verified Allergy, Unknown, 04/07/08) ezetimibe (Verified Allergy, Unknown, 04/07/08) rosuvastatin (Verified Allergy, Unknown, 04/07/08) tetracycline (Verified Allergy, Unknown, 04/07/08) lorazepam (Unverified Adverse Reaction, Unknown, 09/01/17) STATES "TOO STRONG" Uncoded Allergies: BETA BLOCKERS (Allergy, Mild, 04/08/09) STATINS (Allergy, Mild, 04/08/09) Home Medications Beta-Carotene 25,000 Unit Capsule, 25,000 UNIT PO Q48H, (Reported) Calcium Carbonate 600 Mg Tablet, 600 MG PO DAILY, (Reported) Cholecalciferol (Vitamin D3) 400 Unit Tablet, 800 UNIT PO DAILY, (Reported) Glucosamine Sulfate 2Kcl 1,000 Mg Tablet, 1,000 MG PO DAILY, (Reported) Losartan Potassium 100 Mg Tablet, 100 MG PO DAILY, (Reported) Multivitamin 1 Each Tablet, 1 EACH PO DAILY, (Reported) Trazodone HCl 50 Mg Tablet, 50 MG PO HS, (Reported) Ubidecarenone 100 Mg Capsule, 100 MG PO DAILY, (Reported) [Curamed] , 375 MG PO DAILY, (Reported) Patient Home Medication List Home Medication List Reviewed: Yes Review of Systems Review of Systems Constitutional: no symptoms reported EENTM: No Symptoms Reported Respiratory: See HPI Cardiovascular: See HPI Gastrointestinal: See HPI Genitourinary: No Symptoms Reported Musculoskeletal: see HPI Skin: no symptoms reported Psychiatric/Neurological: See HPI Endocrine: No Symptoms Reported Hematologic/Lymphatic: No Symptoms Reported Past Rnqxaxs-Gxwkth-Ptpvhh Hx Past Med/Social Hx: Reviewed and Corrections made Patient Social History Alcohol Use: Denies Use Recreational Drug Use: No Smoking Status: Never a Smoker Recent Foreign Travel: No Contact w/Someone Who Travel: No Recent Infectious Disease Expo: No Recent Hopitalizations: Yes Physical Abuse: No Sexual Abuse: No Immunizations Up To Date Date of Influenza Vaccine: Jan 10, 2014 Past Medical History Surgeries: Yes (HAND AND ARM) Coronary Stent, Hysterectomy, Orthopedic, Tonsillectomy, Vascular Surgery Respiratory: Yes (left diaphragm paralysis) Cardiac: Yes Coronary Artery Disease, Hypertension Neurological: Yes (left diaphragm paralysis) 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 Disorders: Yes Gastrointestinal: Yes Hiatal Hernia Musculoskeletal: Yes Arthritis Endocrine: No Cancer: No Psychosocial: Yes Sleep Difficulties Blood Disorders: Yes Physical Exam Vital Signs Vital Signs - First Documented 09/19/18 22:01 Temp 97.6 Pulse 76 Resp 20 B/P (MAP) 167/93 (117) Pulse Ox 97 O2 Delivery Room Air Capillary Refill : Less Than 3 Seconds Height, Weight, BMI Height: 5'2.00" Weight: 129lbs. 0.2oz. 58.687019ux; 23.8 BMI Method:Stated General Appearance: No Apparent Distress, WD/WN HEENT: PERRL/EOMI, Normal ENT Inspection Neck: Normal Inspection Respiratory: Chest Non Tender, Lungs Clear, Normal Breath Sounds, No Accessory Muscle Use, No Respiratory Distress Cardiovascular: Regular Rate, Rhythm, No Edema, No Murmur Gastrointestinal: Non Tender, Soft Extremity: Normal Inspection, Non Tender, No Calf Tenderness, No Pedal Edema Neurologic/Psychiatric: Alert, Oriented x3, No Motor/Sensory Deficits, Normal Mood/Affect, hedis abstractor II-XII Norm as Tested Skin: Normal Color, Warm/Dry Progress/Results/Core Measures Results/Orders Lab Results Laboratory Tests Test 09/19/18 22:30 09/20/18 00:20 Range/Units White Blood Count 7.8 4.3-11.0 10^3/uL Red Blood Count 3.58 L 4.35-5.85 10^6/uL Hemoglobin 11.4 L 11.5-16.0 G/DL Hematocrit 35 35-52 % Mean Corpuscular Volume 99 80-99 FL Mean Corpuscular Hemoglobin 32 25-34 PG Mean Corpuscular Hemoglobin Concent 32 32-36 G/DL Red Cell Distribution Width 13.5 10.0-14.5 % Platelet Count 221 130-400 10^3/uL Mean Platelet Volume 10.3 7.4-10.4 FL Neutrophils (%) (Auto) 52 42-75 % Lymphocytes (%) (Auto) 37 12-44 % Monocytes (%) (Auto) 11 0-12 % Eosinophils (%) (Auto) 1 0-10 % Basophils (%) (Auto) 0 0-10 % Neutrophils # (Auto) 4.0 1.8-7.8 X 10^3 Lymphocytes # (Auto) 2.8 1.0-4.0 X 10^3 Monocytes # (Auto) 0.8 0.0-1.0 X 10^3 Eosinophils # (Auto) 0.1 0.0-0.3 10^3/uL Basophils # (Auto) 0.0 0.0-0.1 10^3/uL Prothrombin Time 12.1 L 12.2-14.7 SEC INR Comment 0.9 0.8-1.4 Activated Partial Thromboplast Time 24 24-35 SEC D-Dimer 0.69 H 0.00-0.49 UG/ML Sodium Level 145 135-145 MMOL/L Potassium Level 3.9 3.6-5.0 MMOL/L Chloride Level 108 H 98-107 MMOL/L Carbon Dioxide Level 24 21-32 MMOL/L Anion Gap 13 5-14 MMOL/L Blood Urea Nitrogen 26 H 7-18 MG/DL Creatinine 0.89 0.60-1.30 MG/DL Estimat Glomerular Filtration Rate > 60 BUN/Creatinine Ratio 29 Glucose Level 91 70-105 MG/DL Calcium Level 9.3 8.5-10.1 MG/DL Corrected Calcium 9.3 8.5-10.1 MG/DL Magnesium Level 2.1 1.8-2.4 MG/DL Total Bilirubin 0.2 0.1-1.0 MG/DL Aspartate Amino Transf (AST/SGOT) 20 5-34 U/L Alanine Aminotransferase (ALT/SGPT) 11 0-55 U/L Alkaline Phosphatase 74 40-136 U/L Myoglobin 26.1 10.0-92.0 NG/ML Troponin I < 0.028 < 0.028 <0.028 NG/ML B-Type Natriuretic Peptide 247.3 H <100.0 PG/ML Total Protein 6.5 6.4-8.2 GM/DL Albumin 4.0 3.2-4.5 GM/DL My Orders Orders - MAURICIO CASTAÑEDA MD Cbc With Automated Diff (09/19/18 22:14) Magnesium (09/19/18 22:14) Chest 1 View, Ap/Pa Only (09/19/18 22:14) Ekg Tracing (09/19/18 22:14) Cardiac Profile 1 (09/19/18 22:14) Comprehensive Metabolic Panel (09/19/18 22:14) Myoglobin Serum (09/19/18 22:14) Protime With Inr (09/19/18 22:14) Partial Thromboplastin Time (09/19/18 22:14) O2 (09/19/18 22:14) Monitor-Rhythm Ecg Trace Only (09/19/18 22:14) Ed Iv/Invasive Line Start (09/19/18 22:14) BNP (09/19/18 22:14) Aspirin Chewable Tablet (Baby Aspirin Ch (09/19/18 22:41) Nitroglycerin 0.4 Mg Btl 25's (Nitrostat (09/19/18 22:42) Fibrin Degradation Products (09/19/18 23:16) Troponin I (09/20/18 00:30) Nitroglycerin 0.4 Mg Btl 25's (Nitrostat (09/19/18 23:30) Aspirin Chewable Tablet (Baby Aspirin Ch (09/19/18 23:30) Ct Angio Chest W (7/21/19 00:16) Iohexol Injection (Omnipaque 350 Mg/Ml 1 (09/20/18 01:00) Received Contrast (Hold Metformin- Contr (09/20/18 01:00) Ns (Ivpb) (Sodium Chloride 0.9% Ivpb Bag (09/20/18 01:00) Medications Given in ED Vital Signs/I&O 09/19/18 09/19/18 09/20/18 22:01 23:21 02:05 Temp 97.6 97.2 Pulse 76 70 73 Resp 20 17 16 B/P (MAP) 167/93 (117) 122/81 (95) 150/78 (102) Pulse Ox 97 98 99 O2 Delivery Room Air Room Air Room Air Blood Pressure Mean: 95 Progress Progress Note : Progress Note Patient received one dose of nitroglycerin and aspirin. Workup was positive for elevated d-dimer. CT angiogram was obtained and revealed a large hiatal hernia. Patient's discomfort gradually improved. After discussing the hiatal hernia, patient knowledge she has had problems with similar discomfort related to her hiatal hernia in the past. Initial ECG Impression Date: Sep 19, 2018 Initial ECG Impression Time: 22:39 Initial ECG Rate: 72 Initial ECG Rhythm: Normal Sinus Initial ECG Intervals: Normal Initial ECG Impression: Normal Comment Normal sinus rhythm with no ST elevation or depression. No abnormal intervals or axis deviation. Diagnostic Imaging Diagonstic Imaging: Xray Plain Films/CT/US/NM/MRI: chest Comments Chest x-ray viewed by me and compared with prior. No report yet available. No acute abnormalities were appreciated. Diagonstic Imaging: CT Plain Films/CT/US/NM/MRI: chest Comments CT angiogram of the chest viewed by me and [employer] report reviewed. Large hiatal hernia with no other acute abnormalities appreciated. Departure Impression Primary Impression: Chest discomfort Additional Impressions: Acute dyspnea Hiatal hernia Insomnia Qualified Codes: G47.00 - Insomnia, unspecified Disposition: HOME, SELF-CARE Condition: Improved Departure-Patient Inst. Decision time for Depature: 01:59 Referrals: LAUREN MARTINEZ MD (PCP/Family) Primary Care Physician Patient Instructions: Chest Pain (DC) Add. Discharge Instructions: Follow-up with your primary care provider and your network systems integrator as soon as possible. Please call Friday for appointments. Take Pepcid twice daily consistently for the next couple of weeks. For insomnia view may try taking eizi-[id number] melatonin or Benadryl (diphenhydramine). Follow package instructions. Return to the emergency room if you have worsening symptoms. All discharge instructions reviewed with patient and/or family. Voiced understa nding. Copy Copies To 1: LAUREN MARTINEZ MD, JOSHUA T MD Sep 20, 2018 02:01
[2018-09-20 02:05] VITALS: BP 150/78
--- NOTE | 2018-09-20 06:18 | Diagnostic Imaging Report ---
EXAMINATION: Portable erect AP chest at 1035 PM INDICATION: Cough and congestion The heart size is within normal limits and stable when compared to 09/01/17. The hiatal hernia seen on the prior study is again evident and does not appear to have changed significantly. The lungs are clear. There is no evidence for failure, pneumonia or for a pleural effusion. The mediastinum is not widened. The osseous structures are intact. IMPRESSION: There is no evidence of active disease. When compared to the previous study, there has been no adverse change. Dictated by: Dictated on workstation # [id number]
--- NOTE | 2018-09-20 06:31 | Diagnostic Imaging Report ---
PROCEDURE: CT angiography of the chest with contrast. TECHNIQUE: Multiple contiguous axial images were obtained through the chest after uneventful bolus administration of intravenous contrast. 2D reconstructed CTA MIP acquisitions were also performed. Auto Exposure Controls were utilized during the CT exam to meet ALARA standards for radiation dose reduction. INDICATION: Shortness of breath, cough, congestion. There are no prior CTA chest examinations available for comparison. FINDINGS: The plain film examination of the chest performed prior study failed to show any sign of acute cardiopulmonary abnormality. On this exam, there is no defect within the pulmonary arteries to indicate pulmonary embolus. The aorta is not abnormally dilated and there is no sign of dissection. The heart size is within normal limits. There are coronary artery calcifications evident. The lungs are generally clear. There is mild chronic atelectasis/scar formation involving the right middle lobe and lingula. There is no evidence for failure, pneumonia or for pleural effusion. There is no parenchymal lung mass visualized. There is a 5.2 x 6.6 CM herniation of the stomach through the diaphragm. This may be a paraesophageal hernia as opposed to a simple hiatal hernia. There is no mediastinal or hilar adenopathy. The thyroid gland is unremarkable. There is no obvious breast mass. The sections through the upper abdomen fail to show any sign of acute abnormality. The bone windows are unremarkable for fracture or 4 destructive lesion. IMPRESSION: 1. There is no evidence for an acute cardiopulmonary abnormality. In particular, there is no sign of pulmonary embolus or dissection. 2. There is herniation of stomach through the diaphragm. This may be a paraesophageal hernia as opposed to simple hiatal hernia. If further study is desired, then upper GI exam or endoscopy would be recommended. Dictated by: Dictated on workstation # [id number]
== END 2018-09-20 02:10 | disposition home or self-care (01) ==
LOC: EDUNIT# 21:54 → ER 21:58
DX: R06.00 Dyspnea, unspecified (principal); K44.9 Diaphragmatic hernia without obstruction or gangrene; G47.00 Insomnia, unspecified; R07.89 Other chest pain; I10 Essential (primary) hypertension; I25.10 Atherosclerotic heart disease of native coronary artery without angina pectoris; Z88.8 Allergy status to other drugs, medicaments and biological substances; Z88.1 Allergy status to other antibiotic agents; Z95.5 Presence of coronary angioplasty implant and graft; Z90.89 Acquired absence of other organs
CPT/HCPCS: 36415; 71045; 71275; 80053; 83735; 83874; 83880; 84484; 85025; 85379; 85610; 85730; 93005; 93041

== ENCOUNTER → 2019-04-29 | Outpatient (CLI) | payer MEDICARE ==
[~2019-04-29] MED LIST changes: -BETA2500 PO; -RANI-591 PO; +RANI-603 PO; -TRAZ-222 PO; +TRZ50T PO; +[UNRECOGNIZED DRUG - CODE] PO
--- NOTE | 2019-04-29 15:47 | Diagnostic Imaging Report ---
INDICATION: 20 pound weight loss over 4 months as well as right rib pain. TIME OF EXAM: 3:04 p.m. Comparison is made with prior chest from 09/19/2018. Heart size is stable. Large hiatal hernia is again noted. Lungs are clear. There are no infiltrates. No effusion or pneumothorax is seen. IMPRESSION: Stable chest. No acute feature is detected. Dictated by: Dictated on workstation # [id number]
--- NOTE | 2019-04-29 15:49 | Diagnostic Imaging Report ---
INDICATION: Right mid axillary rib pain. TIME OF EXAM: 3:05 p.m. Multiple views of the right ribs were obtained. There is some generalized demineralization of the ribs. No definite rib fracture is seen. No parenchymal contusion, effusion or pneumothorax is seen. IMPRESSION: No displaced rib fracture is identified. Dictated by: Dictated on workstation # [id number]
== END ==
LOC: RAD 14:43
DX: R07.81 Pleurodynia (principal); R63.4 Abnormal weight loss
CPT/HCPCS: 71046; 71100

== ENCOUNTER 2019-05-01 13:40 | Emergency (ER) | payer MEDICARE ==
[~2019-05-01] VITALS: Ht 157 cm; Wt 52.0 kg
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
--- NOTE | 2019-05-01 14:45 | NUR ---
NOTIFIED HER X-RAY SHOULD BE COMING ANY TIME. DENIES NEEDS AT THIS TIME.
--- NOTE | 2019-05-01 15:12 | Diagnostic Imaging Report ---
CLINICAL INDICATION: Patient who is having a procedure done to a hernia felt to the lateral part of the lower right anterior axillary rib with pain. EXAM: X-ray of the right ribs multiple views. COMPARISON: X-rays of the right ribs dated 04/29/2019. CT angiogram of the chest dated 09/20/2018. FINDINGS AND IMPRESSION: 1: There is stable bony irregularity involving the lateral aspect of the right T5 rib which is a chronic finding and noted on comparison CT angiogram of the chest dated 09/20/2018. 2: There is no acute rib fracture seen in the interim. 3: The remainder of this exam shows no significant interval change compared to the prior study of comparison. Dictated by: Dictated on workstation # [id number]
[2019-05-01 15:29] VITALS: BP 181/93
--- NOTE | 2019-05-01 15:29 | NUR ---
PT REQUEST VITALS NOT BE TAKEN AT DISCHARGE.
== END 2019-05-01 15:29 | disposition home or self-care (01) ==
LOC: EDUNIT# 13:40 → ER 13:41
DX: R07.89 Other chest pain (principal); I10 Essential (primary) hypertension; I25.10 Atherosclerotic heart disease of native coronary artery without angina pectoris; Z88.1 Allergy status to other antibiotic agents; Z88.8 Allergy status to other drugs, medicaments and biological substances; Z95.5 Presence of coronary angioplasty implant and graft
CPT/HCPCS: 71100

== ENCOUNTER → 2019-07-07 | Outpatient (CLI) | payer MEDICARE ==
[~2019-07-07] MED LIST changes: +HOLD METFORMIN - RECEIVED CONTRAST 20 ML VIAL IV SCH; +IOHEXOL 350 MG/ML 100 ML (OMNIPAQUE 350) VIAL IV ONE; +NS 100 ML (IVPB) BAG IV ONE
--- NOTE | 2019-07-07 13:31 | Diagnostic Imaging Report ---
PROCEDURE: CT abdomen and pelvis with and without contrast. TECHNIQUE: Precontrast acquisitions were acquired through the abdomen and pelvis. Multiple contiguous axial images were obtained through the abdomen and pelvis after the administration of intravenous contrast. Auto Exposure Controls were utilized during the CT exam to meet ALARA standards for radiation dose reduction. INDICATION: Weight loss and abdominal pain. No prior examinations are available for comparison. FINDINGS: There is a large hiatal hernia. The lung bases are clear. Heart size is normal. The liver is normal in size without focal lesions. Gallbladder is unremarkable. There is no biliary ductal dilatation. Spleen is normal. Pancreas and adrenal glands are unremarkable. Kidneys are normal in appearance. Aorta is nonaneurysmal. Bowel gas pattern is nonspecific. There is some diverticular disease without evidence of diverticulitis. There is a moderate amount of atherosclerotic calcification of the aorta. There is no free air. There is no ascites. There are no focal inflammatory changes. There is a 3.8 cm cyst in left adnexa presumably ovarian. Bladder is normal. No free pelvic fluid. There are moderate degenerative changes in the spine. IMPRESSION: Large hiatal hernia. Moderate atherosclerotic calcification of the aorta which is nonaneurysmal. Additionally there is stent in left renal artery. Cyst left hemipelvis presumably ovarian. Diverticular disease without evidence of diverticulitis. Dictated by: Dictated on workstation # [id number]
== END ==
LOC: RAD 12:45
DX: R10.84 Generalized abdominal pain (principal); K44.9 Diaphragmatic hernia without obstruction or gangrene; K57.90 Diverticulosis of intestine, part unspecified, without perforation or abscess without bleeding; I70.0 Atherosclerosis of aorta; R19.09 Other intra-abdominal and pelvic swelling, mass and lump
CPT/HCPCS: 74178

== ENCOUNTER → 2019-08-03 | Outpatient (CLI) | payer MEDICARE ==
[~2019-08-03] MED LIST changes: -HOLD METFORMIN - RECEIVED CONTRAST 20 ML VIAL IV SCH; -IOHEXOL 350 MG/ML 100 ML (OMNIPAQUE 350) VIAL IV ONE; -NS 100 ML (IVPB) BAG IV ONE
--- NOTE | 2019-08-03 18:33 | Diagnostic Imaging Report ---
EXAMINATION: PA and lateral chest at 04:00 p.m. INDICATION: Chest pain. FINDINGS: The heart size is within normal limits and stable when compared to 04/29/2019. The hiatal hernia noted on the prior study is again evident and unchanged. The lungs remain clear. There is no sign of failure, pneumonia, or pleural effusion. The mediastinum is not widened. The osseous structures are intact. In particular, there is no sign of a displaced rib fracture on the left; however, a left rib series is pending. IMPRESSION: 1. There is no evidence for an acute cardiopulmonary abnormality. 2. A left rib series is pending. Dictated by: Dictated on workstation # [id number]
--- NOTE | 2019-08-03 18:35 | Diagnostic Imaging Report ---
EXAMINATION: Left ribs. INDICATION: Fell, rib pain. FINDINGS: Three views were obtained. On one view only, there is slight offset of the cortex of the anterior aspect of the seventh or eighth ribs. This does suggest a slightly displaced fracture, but the age of this injury is indeterminate. Clinical follow-up is recommended. There is no sign of a displaced rib fracture. There is no evidence for any injury to the underlying left lung. IMPRESSION: 1. There is a nondisplaced fracture of the anterior aspect of either the left seventh or eighth rib. The age of this injury however is indeterminate. Clinical follow-up is recommended. 2. There is no displaced rib fracture noted. Dictated by: Dictated on workstation # [id number]
== END ==
LOC: RAD 15:40
DX: S22.32XA Fracture of one rib, left side, initial encounter for closed fracture (principal); R63.4 Abnormal weight loss; W19.XXXA Unspecified fall, initial encounter
CPT/HCPCS: 71046; 71100

== ENCOUNTER 2019-08-16 05:37 | Outpatient (RCR) | payer MEDICARE ==
[~2019-08-16] VITALS: Ht 157 cm; Wt 52.0 kg
[~2019-08-16 05:37] MED LIST changes: +BIOT25007 PO; +CHOL100048 PO; +CYAN25003 SL; +MAGN400O7 PO; +OMEP40CA27 PO; +PREVAGEN PO
== END 2019-08-16 15:10 | disposition home or self-care (01) ==
LOC: PREOP 05:37
PROVIDERS: ATTEND Surgery
DX: Z01.818 Encounter for other preprocedural examination (principal); Z11.59 Encounter for screening for other viral diseases
CPT/HCPCS: 87635

== ENCOUNTER 2019-11-01 18:14 | Emergency (ER) | payer OTHER, MEDICARE ==
[~2019-11-01] VITALS: Ht 154.9 cm; Wt 52.2 kg
[~2019-11-01 18:14] MED LIST changes: -CALC600T12 PO; +CALC600T14 PO; +MULT-567 PO; -MULT1TAB69 PO
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
[2019-11-01 19:48] VITALS: BP 188/86
== END 2019-11-01 19:48 | disposition home or self-care (01) ==
LOC: EDUNIT# 18:14 → ER 18:17
DX: S20.219A Contusion of unspecified front wall of thorax, initial encounter (principal); R40.2410 Glasgow coma scale score 13-15, unspecified time; K21.9 Gastro-esophageal reflux disease without esophagitis; I10 Essential (primary) hypertension; Z95.5 Presence of coronary angioplasty implant and graft; Z88.8 Allergy status to other drugs, medicaments and biological substances; Z88.1 Allergy status to other antibiotic agents; Z20.828 Contact with and (suspected) exposure to other viral communicable diseases; V89.2XXA Person injured in unspecified motor-vehicle accident, traffic, initial encounter
CPT/HCPCS: 71046; 71250; 74176

== ENCOUNTER 2022-02-27 10:58 | Outpatient (CLI) | payer MEDICARE ==
[~2022-02-27] VITALS: Ht 157.5 cm; Wt 50.0 kg
[~2022-02-27 10:58] MED LIST changes: -CALC600T14 PO; +CALC600T91 PO; -OMEP40CA27 PO; +OMEP40CA6 PO
[2022-03-05] MEDS ORDERED: LOSA50TA63 PO (10:35)
[2022-03-05] MEDS ORDERED: OXB5TCR PO (10:46)
== END 2022-03-07 09:58 | disposition home or self-care (01) ==
LOC: PREOP 10:58
PROVIDERS: ATTEND Specialist
DX: Z01.818 Encounter for other preprocedural examination (principal)

== ENCOUNTER 2022-03-08 11:31 | Day surgery (SDC) | payer MEDICARE ==
[~2022-03-08] VITALS: Ht 157.5 cm; Wt 50.0 kg
[~2022-03-08 11:31] MED LIST changes: +LOSA50TA63 PO; +OXB5TCR PO
[2022-03-08] MEDS ORDERED: TIMOLOL 0.5% (CATARACTS) 0.3 ML BTL OU PRN (12:00)
[2022-03-08] MEDS ORDERED: MOXIFLOXACIN OPHTH SOLN 5 MG/ML 0.3 ML SYRINGE OP ONE (12:00)
[2022-03-08] MEDS ORDERED: POVIDONE (BETADINE) OPHTH SOLN 5% 30 ML OP ONE (12:00)
[2022-03-08] MEDS: TETRACAINE 0.5% OPHTH SOLN 4 ML BTL (SINGLE DOSE ONLY) OU PRN ×4 (12:03→12:19)
[2022-03-08] MEDS: PHENYLEPHRINE 10% OPHTH (NEO-SYN) 5 ML BTL OU SCH ×3 (12:10→12:19)
[2022-03-08] MEDS: TROPICAMIDE 1% OPH SOLN (MYDRIACYL) 15 ML BTL OP SCH ×3 (12:10→12:19)
[2022-03-08 12:20] VITALS: BP 168/89
[2022-03-08] MEDS ORDERED: MIDAZOLAM 2 MG/2 ML (VERSED) VIAL ONE (12:42)
--- NOTE | 2022-03-08 12:51 | Ophthalmologist Pre-Op Note ---
Pre-Operative Progress Note H&P Reviewed The H&P was reviewed, patient examined and no changes noted. Date H&P Reviewed: Mar 08, 2022 Time H&P Reviewed: 12:51 Pre-Op Dx Cataract, Right Eye DANYELLE ATKINS MD Mar 08, 2022 12:51
[2022-03-08] MEDS ORDERED: acetaZOLAMIDE ER 500 MG CAP (DIAMOX SEQUELS) PO ONE (13:15)
--- NOTE | 2022-03-08 13:15 | Ophthalmology Operative Report ---
Cataract removal/placement IOL PREOPERATIVE DIAGNOSIS: Cataract Right Eye POSTOPERATIVE DIAGNOSIS: Cataract Right Eye PROCEDURE: Cataract removal and placement of posterior chamber implant, right eye SURGEON: Anderson Atkins ANESTHESIA: Topical with sedation COMPLICATIONS: None ESTIMATED BLOOD LOSS: Minimal DESCRIPTION OF PROCEDURE: After proper informed consent was obtained, the patient, a 87 female, was taken to the Operating Room and the right eye was anesthetized with tetracaine. The right eye was then prepped and draped in the usual manner. A wire lid speculum was placed. A paracentesis was made at the left hand position. Preservative free lidocaine was injected into the anterior chamber followed by viscoelastic. A clear corneal incision was made in the temporal position. A capsulorrhexis was preformed and the central nuclear and cortical material were removed. The posterior capsule was polished and Zachary 22.5 AU00T0 IOL was placed into the capsular bag. The residual viscoelastic was aspirated and balanced saline solution was injected into the anterior chamber. The wound was checked and found to be water tight. The patient tolerated the procedure well without complications. ANDERSON ATKINS MD Mar 08, 2022 13:15
[2022-03-08 13:23] VITALS: BP 154/78
--- NOTE | 2022-03-08 14:11 | Anesthesia-General Post-Op ---
MAC Patient Condition Mental Status/LOC: Same as Preop Cardiovascular: Satisfactory Nausea/Vomiting: Absent Respiratory: Satisfactory Pain: Controlled Complications: Absent Post Op Complications Complications None Follow Up Care/Instructions Patient Instructions None needed. Anesthesiology Discharge Order Discharge Order Patient was doing well after the procedure with no complaints, stable vital signs, no apparent adverse anesthesia problems. No complications reported per nursing. ANTONINA BERNARD DO Mar 08, 2022 14:11
== END 2022-03-08 13:29 | disposition home or self-care (01) ==
LOC: SDC 11:31
PROVIDERS: ATTEND Specialist
DX: H25.9 Unspecified age-related cataract (principal)
CPT/HCPCS: 66984; V2632

== ENCOUNTER 2022-03-14 06:45 | Outpatient (CLI) | payer MEDICARE | END 2022-03-15 15:49 | disposition home or self-care (01) | LOC: PREOP 06:45 | PROVIDERS: ATTEND Specialist | DX: Z01.818 Encounter for other preprocedural examination (principal); H25.12 Age-related nuclear cataract, left eye ==

== ENCOUNTER 2022-03-22 10:47 | Day surgery (SDC) | payer MEDICARE ==
[~2022-03-22] VITALS: Ht 157.5 cm; Wt 50.0 kg
[2022-03-22] MEDS: TETRACAINE 0.5% OPHTH SOLN 4 ML BTL (SINGLE DOSE ONLY) OU PRN ×4 (11:00→11:19)
[2022-03-22] MEDS ORDERED: POVIDONE (BETADINE) OPHTH SOLN 5% 30 ML OP ONE (11:00)
[2022-03-22] MEDS ORDERED: acetaZOLAMIDE ER 500 MG CAP (DIAMOX SEQUELS) PO ONE (11:00)
[2022-03-22] MEDS: TROPICAMIDE 1% OPH SOLN (MYDRIACYL) 15 ML BTL OP SCH ×3 (11:09→11:19)
[2022-03-22] MEDS: PHENYLEPHRINE 10% OPHTH (NEO-SYN) 5 ML BTL OU SCH ×3 (11:09→11:23)
[2022-03-22 11:24] VITALS: BP 170/83
[2022-03-22] MEDS ORDERED: MIDAZOLAM 2 MG/2 ML (VERSED) VIAL ONE (11:25)
--- NOTE | 2022-03-22 11:43 | Ophthalmologist Pre-Op Note ---
Pre-Operative Progress Note H&P Reviewed The H&P was reviewed, patient examined and no changes noted. Date H&P Reviewed: Mar 22, 2022 Time H&P Reviewed: 11:43 Pre-Op Dx Cataract, Left Eye DANYELLE ATKINS MD Mar 22, 2022 11:43
--- NOTE | 2022-03-22 12:10 | Ophthalmology Operative Report ---
Cataract removal/placement IOL PREOPERATIVE DIAGNOSIS: Cataract Left Eye POSTOPERATIVE DIAGNOSIS: Cataract Left Eye PROCEDURE: Cataract removal and placement of posterior chamber implant, left eye SURGEON: Anderson Atkins ANESTHESIA: Topical with sedation COMPLICATIONS: None ESTIMATED BLOOD LOSS: Minimal DESCRIPTION OF PROCEDURE: After proper informed consent was obtained, the patient, a 87 female, was taken to the Operating Room and the left eye was anesthetized with tetracaine. The left eye was then prepped and draped in the usual manner. A wire lid speculum was placed. A paracentesis was made at the left hand position. Preservative free lidocaine was injected into the anterior chamber followed by viscoelastic. A clear corneal incision was made in the temporal position. A capsulorrhexis was preformed and the central nuclear and cortical material were removed. The posterior capsule was polished and an Zachary 21.5 AU00T0 was placed into the capsular bag. The residual viscoelastic was aspirated and balanced saline solution was injected into the anterior chamber. Moxifloxacin was injected into the anterior chamber. The wound was checked and found to be water tight. The patient tolerated the procedure well without complications. ANDERSON ATKINS MD Mar 22, 2022 12:10
[2022-03-22 12:15] VITALS: BP 168/112
--- NOTE | 2022-03-22 13:11 | Anesthesia-General Post-Op ---
MAC Patient Condition Mental Status/LOC: Same as Preop Cardiovascular: Satisfactory Nausea/Vomiting: Absent Respiratory: Satisfactory Pain: Controlled Complications: Absent Post Op Complications Complications None Follow Up Care/Instructions Patient Instructions None needed. Anesthesiology Discharge Order Discharge Order Patient is doing well, no complaints, stable vital signs, no apparent adverse anesthesia problems. No complications reported per nursing. YARELIS LUNA CRNA Mar 22, 2022 13:11
== END 2022-03-22 12:17 | disposition home or self-care (01) ==
LOC: SDC 10:47
PROVIDERS: ATTEND Specialist
DX: H25.9 Unspecified age-related cataract (principal)
CPT/HCPCS: 66984; V2632

== ENCOUNTER → 2022-05-30 | Outpatient (CLI) | payer MEDICARE ==
[~2022-05-30] MED LIST changes: +ASCO-262 PO
[2022-05-30 15:17] LABS: ABSOLUTE RETIC # 39 10e9/uL (24-90); BASOPHILS % (AUTO) 1 % (0-10); EOSINOPHILS # (AUTO) 0.1 10^3/uL (0.0-0.3); EOSINOPHILS % (AUTO) 2 % (0-10); HEMATOCRIT 30 % (35-52); HEMOGLOBIN 9.5 g/dL (11.5-16.0); LYMPHOCYTES # (AUTO) 2.3 10^3/uL (1.0-4.0); LYMPHOCYTES % (AUTO) 39 % (12-44); MEAN CORPUSCULAR HEMOGLOBIN 24 pg (25-34); MEAN CORPUSCULAR HGB CONC 31 g/dL (32-36); MEAN CORPUSCULAR VOLUME 78 fL (80-99); MONOCYTES # (AUTO) 0.5 10^3/uL (0.0-1.0); MONOCYTES % (AUTO) 9 % (0-12); NEUTROPHILS % (AUTO) 50 % (42-75); PLATELET COUNT 248 10^3/uL (130-400); RETICULOCYTE % 1.01 % (0.50-2.40); WHITE BLOOD COUNT 6.1 10^3/uL (4.3-11.0)
[2022-05-30 16:15] LABS: EOSINOPHILS % (MANUAL) 2 %; HYPOCHROMASIA MODERATE; LYMPHOCYTES % (MANUAL) 34 %; MONOCYTES % (MANUAL) 3 %; NEUTROPHILS % (MANUAL) 61 %; PLATELET CLUMPS NONE SEEN; POIKILOCYTOSIS SLIGHT; TARGET CELLS MODERATE
[2022-05-30 16:16] LABS: PLATELET ESTIMATE NORMAL
== END ==
LOC: LAB 14:58
PROVIDERS: ATTEND Internal Medicine
DX: D64.9 Anemia, unspecified (principal)
CPT/HCPCS: 36415; 85007; 85027; 85045; 85055

== ENCOUNTER 2022-06-02 17:15 | Observation (INO) | payer MEDICARE ==
[~2022-06-02] VITALS: Ht 157 cm; Wt 50.3 kg
[~2022-06-02 17:15] MED LIST changes: -ASCO-262 PO
[2022-06-02] MEDS ORDERED: GLUCAGON EMERGENCY 1 MG/KIT IV ONE ×2 (17:30→18:00)
[2022-06-02 17:42] LABS: HEMATOCRIT 29 % (35-52); HEMOGLOBIN 9.2 g/dL (11.5-16.0); MEAN CORPUSCULAR HEMOGLOBIN 25 pg (25-34); MEAN CORPUSCULAR HGB CONC 32 g/dL (32-36); MEAN CORPUSCULAR VOLUME 78 fL (80-99); MEAN PLATELET VOLUME 10.1 fL (9.0-12.2); PLATELET COUNT 265 10^3/uL (130-400); WHITE BLOOD COUNT 6.2 10^3/uL (4.3-11.0)
--- NOTE | 2022-06-02 17:54 | Progress Note-Pre Operative ---
Pre-Operative Progress Note Date of Available H&P: Jun 02, 2022 Date H&P Reviewed: Jun 02, 2022 Time H&P Reviewed: 18:00 History & Physical: No changes noted Pre-Operative Diagnosis: dysphagia, GERD, esophageal FB CHRISTIANO NOLASCO MD Jun 02, 2022 17:54
[2022-06-02] MEDS ORDERED: GLUCAGON EMERGENCY 1 MG/KIT ONE (17:55)
--- NOTE | 2022-06-02 18:03 | ED GI ---
General Chief Complaint: Abdominal/GI Problems Stated Complaint: FOOD STUCK IN THROAT Nursing Triage Note: PT PRESENTS TO ED WITH C/O SPITTING UP FOAM AND UNABLE TO SWALLOW D/T FEELINGS OF SOMETHING STUCK IN HER THROAT. PT ATE FIORE CHEESEBURGER AND SWEET POTATO FOR LUNCH. Source of Information: Patient Exam Limitations: No Limitations History of Present Illness Date Seen by Provider: Jun 02, 2022 Time Seen by Provider: 17:19 Initial Comments Here with report of vomiting after spit. She states that she is unable to swallow anything down and everything she does just comes right back up. She did eat a fiore cheeseburger and sweet potato for lunch. 1 time she vomited a small piece of tooth sweet potato. She has not and significant pain or distress but just cannot get anything to go down when she swallows. She does report that she has history of this previously but has always been able to clear it. Today she has been unable to clear it. Last ate about 4 to 5 hours ago. Denies other symptoms. Timing/Duration: 4-6 Hours Severity/Quality: Mild, Moderate Location: Other (Esophageal) Radiation: No Radiation Modifying Factors: Worsens With Eating Allergies and Home Medications Allergies Coded Allergies: Niacin Preparations (Unverified Allergy, Intermediate, HIVES, 03/05/22) ALYSON Inhibitors (Unverified Allergy, Mild, 03/05/22) Calcium Channel Blocking Agent Dilt (Verified Allergy, Mild, 03/05/22) albuterol (Unverified Allergy, Mild, 03/05/22) levofloxacin (Verified Allergy, Mild, 03/05/22) pseudoephedrine (Unverified Allergy, Mild, 03/05/22) atenolol (Verified Allergy, Unknown, 03/05/22) cholestyramine (Verified Allergy, Unknown, 03/05/22) ezetimibe (Verified Allergy, Unknown, 03/05/22) rosuvastatin (Verified Allergy, Unknown, 03/05/22) tetracycline (Verified Allergy, Unknown, 03/05/22) lorazepam (Unverified Adverse Reaction, Unknown, 03/05/22) STATES "TOO STRONG" Uncoded Allergies: BETA BLOCKERS (Allergy, Mild, 04/08/09) STATINS (Allergy, Mild, 04/08/09) Patient Home Medication List Home Medication List Reviewed: Yes Beta-Carotene (Beta Carotene) 25,000 Unit Capsule, 25,000 UNIT PO Q48H, (Reported) Entered as Reported by: JACQUIE GAMBOA on 09/01/17 1726 Biotin (Biotin) 2,500 Mcg Capsule, 2,500 MCG PO DAILY, (Reported) Entered as Reported by: SELENE CHANDLER on 08/12/19 1352 Calcium Carbonate (Calcium) 600 Mg Tablet, 600 MG PO DAILY, (Reported) Entered as Reported by: JACQUIE GAMBOA on 09/01/17 1726 Cholecalciferol (Vitamin D3) (Vitamin D3) 25 Mcg Capsule, 25 MCG PO DAILY, (Reported) Entered as Reported by: SELENE CHANDLER on 08/12/19 1352 Cyanocobalamin (Vitamin B-12) (Vitamin B-12) 2,500 Mcg Tab.subl, 5,000 MCG SL DAILY, (Reported) Entered as Reported by: SELENE CHANDLER on 08/12/19 1352 Losartan Potassium (Losartan Potassium) 50 Mg Tablet, 50 MG PO DAILY, (Reported) Entered as Reported by: CIARRA MARCUM on 03/05/22 1035 Oxybutynin Chloride (Ditropan Xl) 5 Mg Tab, 5 MG PO UD, (Reported) Entered as Reported by: CIARRA MARCUM on 03/05/22 1046 [Prevagen] , 1 CAP PO DAILY, (Reported) Entered as Reported by: SELENE CHANDLER on 08/12/19 1352 Review of Systems Review of Systems Constitutional: see HPI; No chills, No fever EENTM: No Symptoms Reported Cardiovascular: No Symptoms Reported Gastrointestinal: See HPI, Vomiting, Other (Foreign body sensation esophagus) Genitourinary: No Symptoms Reported Musculoskeletal: no symptoms reported Past Zfyjmdk-Hyojpj-Yvhrdk Hx Patient Social History Tobacco Use?: No Substance use?: No Alcohol Use?: No Immunizations Up To Date Influenza Vaccine Up-to-Date: Yes; Up-to-Date Seasonal Allergies Seasonal Allergies: Yes Past Medical History Surgeries: Yes (L HAND;R ROTATOR CUFF;KNEE;BILAT BUNIONECTOMY;CATH-STENT X1;L RENAL STENT) Coronary Stent, Hysterectomy, Orthopedic, Tonsillectomy Respiratory: Yes (left diaphragm paralysis) Cardiac: Yes (CARDIAC CATH--STENT X 1 2003;LEFT RENAL ARTERY STENT) Coronary Artery Disease, High Cholesterol, Hypertension Neurological: Yes (left diaphragm paralysis) 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 Sexually Transmitted Disease: No HIV/AIDS: No Genitourinary: No Gastrointestinal: Yes (COLONOSCOPY 08/18/19-HEMORRHOIDS) Gastroesophageal Reflux, Chronic Constipation, Hemorrhoids, Hiatal Hernia Musculoskeletal: Yes (BILAT BUNIONECTOMY;LEFT HAND;R ROTATOR CUFF;) Arthritis, Chronic Back Pain Endocrine: No HEENT: No Loss of Vision: Denies Hearing Impairment: Denies Cancer: No Psychosocial: Yes Sleep Difficulties Integumentary: No Blood Disorders: Yes (ANEMIA) Adverse Reaction/Blood Tranf: No (N/A) Family Medical History Reviewed Nursing Family Hx Physical Exam Vital Signs Vital Signs - First Documented 06/02/22 17:19 Temp 37.2 Pulse 71 Resp 18 B/P (MAP) 186/82 (116) Pulse Ox 96 O2 Delivery Room Air Capillary Refill : Height/Weight/BMI Height: 5'2.00" Weight: 129lbs. 0.2oz. 58.886089mx; 20.00 BMI Method:Stated General Appearance: WD/WN, mild distress HEENT: PERRL/EOMI, pharynx normal Neck: full range of motion, supple Respiratory: lungs clear, normal breath sounds Cardiovascular: regular rate, rhythm, no murmur Gastrointestinal: non tender, soft Extremities: normal range of motion, normal inspection Neurologic/Psychiatric: alert, oriented x 3, other (Hard of hearing) Skin: normal color, warm/dry Progress/Results/Core Measures Results/Orders Lab Results Laboratory Tests Test 06/02/22 17:25 Range/Units White Blood Count 6.2 4.3-11.0 10^3/uL Red Blood Count 3.75 L 3.80-5.11 10^6/uL Hemoglobin 9.2 L 11.5-16.0 g/dL Hematocrit 29 L 35-52 % Mean Corpuscular Volume 78 L 80-99 fL Mean Corpuscular Hemoglobin 25 25-34 pg Mean Corpuscular Hemoglobin Concent 32 32-36 g/dL Red Cell Distribution Width 20.7 H 10.0-14.5 % Platelet Count 265 130-400 10^3/uL Mean Platelet Volume 10.1 9.0-12.2 fL My Orders Orders - BOLIVAR CORNELIUS MD Glucagon Emergency Kit (Glucagon Emergen (06/02/22 17:30) Bnp Nadie (06/02/22 17:31) Cbc No Diff (06/02/22 17:31) Ed Iv/Invasive Line Start (06/02/22 17:31) Glucagon Emergency Kit (Glucagon Emergen (06/02/22 18:00) Glucagon Emergency Kit (Glucagon Emergen (06/02/22 17:55) Medications Given in ED Current Medications Medications Dose Ordered Sig/[place] Route Start Time Stop Time Status Last Admin Dose Admin Glucagon 1 mg ONCE ONCE IV 06/02/22 17:30 06/02/22 17:31 DC 06/02/22 17:35 1 MG Glucagon 1 mg ONCE ONCE IV 06/02/22 18:00 06/02/22 18:01 DC 06/02/22 17:56 1 MG Vital Signs/I&O 06/02/22 17:19 Temp 37.2 Pulse 71 Resp 18 B/P (MAP) 186/82 (116) Pulse Ox 96 O2 Delivery Room Air Blood Pressure Mean: 116 Progress Progress Note : Progress Note Seen and evaluated. IV, labs including CBC and BMP ordered. I did discuss the case with Dr. Narvaez, surgeon on-call. He is recommending glucagon and repeat dosing. He is also recommending admission as he would like to do scope and possible ballooning for possible strictures. Patient does have history of difficulty with swallowing previously and records reviewed demonstrate that she does have hiatal hernia. Glucagon 1 mg IV ordered. 1750: Patient has not cleared bolus and we will repeat glucagon 1 mg IV. I did discuss the case with Dr. Narvaez and he still would like admission and this was discussed with the patient and family who agree. Admit, observation status. We will continue IV fluids and n.p.o. status and write for nausea and low-dose pain medicine as needed. Patient has multiple multiple allergies. We did discuss other options and he was considering Haldol to help with relaxation although we opted against it due to age and multiple allergies. She is slightly hypertensive now but is concerned about hospitalization. We will continue to monitor. Admit, observation status. Patient and family agree with plan. CBC reviewed and white count is normal with slightly low hemoglobin. BMP is pending and can be followed by Dr. Narvaez pending surgery. Departure Communication (Admissions) Time/Spoke to Admitting Phy: 17:23 Impression Primary Impression: Esophageal foreign body Qualified Codes: T18.108A - Unspecified foreign body in esophagus causing other injury, initial encounter Disposition: ADMITTED INPATIENT Condition: Stable Admissions Decision to Admit Reason: Admit from ER (General) Decision to Admit/Date: Jun 02, 2022 Time/Decision to Admit Time: 17:56 Departure-Patient Inst. Referrals: ANGIE BANDA MD (PCP/Family) Primary Care Physician BOLIVAR CORNELIUS MD Jun 02, 2022 18:03
--- NOTE | 2022-06-02 18:12 | HISTORY AND PHYSICAL ---
DATE OF SERVICE: 06/02/2022 ATTENDING PRIMARY CARE PHYSICIAN: Gagandeep Mansfield MD HISTORY OF PRESENT ILLNESS: The patient is an 87-year-old female known to us. She presented to the emergency department with a substernal pressure sensation after taking a food bolus, which she thinks was some type of raw vegetable. Since that time, she has felt continued pressure and has had some difficulty swallowing her saliva. She reports that she has had some issues with gastroesophageal reflux disease in the past. We had done a screening colonoscopy on her 09/2019 where she was found to have chronic stage II, external and internal hemorrhoids and no other abnormalities. She does not report any hematemesis, no coffee-ground emesis. She does report also that she does know of a personal history of a hiatal hernia. PAST MEDICAL HISTORY: Hypertension, history of constipation, hiatal hernia, gastroesophageal reflux disease, iron deficiency anemia, hyperlipidemia. PAST SURGICAL HISTORY: Partial hysterectomy 78, left hand surgery 89, bilateral foot surgery. ALLERGIES: NIACIN, ALYSON INHIBITORS, CALCIUM CHANNEL BLOCKERS, CYCLINE ANTIBIOTICS, STATIN, BETA BLOCKERS, LEVAQUIN, ZETIA. MEDICATIONS: Losartan 50 mg daily, oxybutynin 5 mg daily, vitamin D 25 mcg daily, calcium 600 mg daily, biotin 2500 mcg daily. SOCIAL HISTORY: Negative smoke, negative alcohol. FAMILY HISTORY: Father, lung cancer, gastric cancer. Brother, bladder cancer, myocardial infarction. Sister, uterine cancer. VITAL Signs: Temperature degrees, blood pressure 186/82, pulse 71, respirations 18, pulse ox 96% on room air. REVIEW OF SYSTEMS: A well-nourished female, was slightly guarded secondary to the substernal pressure sensation as well as frequent drooling. No hematemesis, no coffee-ground emesis. Longstanding history of constipation, no red blood per rectum, no dark tarry stools. No fever, chills, no recent inadvertent weight loss. All other review of systems negative. PHYSICAL EXAMINATION: Will be ascertained upon seeing the patient. The majority of the history was obtained through the emergency room physician as well as the patient's electronic medical records. LABORATORY DATA: WBC 6.2, hemoglobin 9.2, hematocrit 29, platelets 289. ASSESSMENT AND PLAN: An 87-year-old female with an esophageal foreign body, likely secondary to her hiatal hernia, which has augmented reflux and likely the development of a distal esophageal stricture. We will proceed with conservative management with IV fluids to prevent dehydration, glucagon x2 as well as yaunker suction by the bedside and antinausea as well as antipain medications. Most of these do reduced on their own. However, if not, we will then proceed with endoscopic removal of the foreign body and if strictures identified, then an esophageal balloon dilatation. Job ID: [id number] DocumentID: [id number] Dictated Date: 06/02/2022 17:50:56 Electronic Integrated Systems Mechanic Date: 06/02/2022 18:10:00 Dictated By: CHRISTIANO NOLASCO MD [facility]
[2022-06-02 18:14] LABS: POTASSIUM 4.5 MMOL/L (3.6-5.0)
[2022-06-02 18:15] LABS: CALCIUM 9.3 MG/DL (8.5-10.1)
[2022-06-02 18:19] LABS: CREATININE SERUM 0.92 MG/DL (0.60-1.30)
[2022-06-02] MEDS ORDERED: NS IV 1000 ML 1,000 ML ONE (19:15)
[2022-06-02 19:26] VITALS: BP 144/69
[2022-06-02] MEDS ORDERED: ONDANSETRON 4 MG/2 ML (SDV) Z0FRAN IV PRN (20:15)
[2022-06-02] MEDS ORDERED: fentaNYL INJ 100 MCG/2 ML AMP IV PRN (20:15)
[2022-06-02] MEDS: NS IV 1000 ML 1,000 ML IV SCH (21:12)
[2022-06-02 23:21] VITALS: BP 160/68
[2022-06-03] VITALS (9 sets, daily range): BP systolic 90–180; BP diastolic 48–76
[2022-06-03] MEDS: NS IV 1000 ML 1,000 ML IV SCH ×2 (05:18→16:30)
[2022-06-03] MEDS ORDERED: LOSA50TA63 PO (09:54)
[2022-06-03] MEDS ORDERED: [UNRECOGNIZED DRUG - CODE] PO (09:54)
[2022-06-03] MEDS ORDERED: ASCO-262 PO (09:56)
[2022-06-03] MEDS ORDERED: LACTATED RINGERS 1,000 ML IV PRN (12:15)
[2022-06-03] MEDS ORDERED: HURRICAINE EXT TUBE (BENZOCAINE) ONE (15:01)
[2022-06-03] MEDS ORDERED: LACTATED RINGERS 1,000 ML IV STA (15:03)
[2022-06-03] MEDS ORDERED: OMEP40CA6 PO (15:06)
--- NOTE | 2022-06-03 15:06 | Discharge Inst-Surgical ---
D/C Lap Instructions-KIDO New, Converted, or Re-Newed RX: RX on Chart Follow Up Activity as tolerated High Fiber Diet 25g or more per day Avoid Alcohol, Caffeine, Spicy [place] and Acid foods. Drink 64 fluid oz or more of fluids per day. Symptoms to Report: Fever over 101 degree F, Nausea/Vomiting If any problems/questions: Contact your physician or go to Emergency Room CHRISTIANO NOLASCO MD Jun 03, 2022 15:06
[2022-06-03] MEDS ORDERED: LIDOCAINE JELLY 2% 6 ML SYRINGE MM PRN (15:15)
[2022-06-03] MEDS ORDERED: HURRICAINE EXT TUBE (BENZOCAINE) XX PRN (15:15)
--- NOTE | 2022-06-03 15:36 | Anesthesia-General Post-Op ---
MAC Patient Condition Mental Status/LOC: Same as Preop Cardiovascular: Satisfactory Nausea/Vomiting: Absent Respiratory: Satisfactory Pain: Controlled Complications: Absent Post Op Complications Complications None Follow Up Care/Instructions Patient Instructions None needed. Anesthesiology Discharge Order Discharge Order Patient is doing well, no complaints, stable vital signs, no apparent adverse anesthesia problems. No complications reported per nursing. ALFREDO RICH CRNA Jun 03, 2022 15:36
--- NOTE | 2022-06-03 22:55 | OPERATIVE REPORT ---
DATE OF SERVICE: 06/03/2022 ATTENDING PRIMARY CARE PHYSICIAN: Gagandeep Mansfield M.D. PREOPERATIVE DIAGNOSES: Dysphagia, esophageal foreign body. 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 No distal obstructions. PROCEDURE: EGD with biopsy and balloon dilatation. SURGEON: Christiano Nolasco MD ANESTHESIA: Monitored anesthesia care. ESTIMATED BLOOD LOSS: Minimal. DISPOSITION: The patient tolerated the procedure well. INDICATIONS: The patient is an 87-year-old female who presented to the Emergency Department with dysphagia with substernal pressure sensation as well as frequent episodes of dry heaving. She states that she was taking in raw sweet potato and then this issue occurred. After talking with the family, they report that she has been having this issue for years now and has lost a significant amount of weight in the past few years as well. She was admitted, started on IV fluids, since that time the dysphagia abated likely consistent with reduction of the esophageal foreign body. Due to her symptomatology, she likely has some level of the stricture as well as hiatal hernia. DESCRIPTION OF PROCEDURE: The patient was brought to the endoscopy suite and laid in left lateral decubitus position. After adequate IV pain and sedative medications and monitored anesthesia care, the mouthpiece was applied. The endoscope was then placed in the mouth, visualizing the pharynx and hypopharyngeal region. Vocal cords, epiglottis and vallecula identified and appeared to be normal. The endoscope was then gently intubated to esophageal opening and esophagus insufflated. The endoscope was then advanced into the first, second, third portions of esophagus. At the level of the GE junction, a reflux esophagitis, Boyle grade C identified with a moderate distal esophageal stricture. A biopsy was taken of the GE junction with forceps with visualization of good hemostasis. The endoscope was then advanced into the stomach and endoscope retroflexed visualizing a large hiatal hernia approximately 5 cm in size. There was a moderate to severe gastritis with some small antral erosions. A biopsy was taken of one of these areas with forceps with visualization of good hemostasis. The endoscope was then advanced to the pylorus and the first and second portion of the duodenum, which appeared normal with no distal obstructions. The balloon was then placed in the stomach and pulled back to the area of the stricture. We then proceeded with a graded dilatation in a stepwise fashion from 2, 4, then eventually 6 atmospheres of pressure or 18 mm in luminal diameter and the balloon was left insufflated for approximately 60 seconds with moderate resistance. The balloon was then desufflated and removed with visualization of good hemostasis as well as no mucosal tears. The balloon was removed and the endoscope withdrawn while taking a second look and suctioning of residual air with no additional findings. The patient tolerated the procedure well. We will start a clear liquid diet and when she is tolerating clears and ambulating well, we will discharge her home. We will also start her on omeprazole 40 mg daily. We will also have her follow up in 6 weeks to schedule her for a repeat dilatation to the goal of 20 mm. Job ID: [id number] DocumentID: [id number] Dictated Date: 06/03/2022 15:49:31 Procurement Accountant Date: 06/03/2022 22:53:00 Dictated By: CHRISTIANO NOLASCO MD
== END 2022-06-03 17:05 | disposition home or self-care (01) ==
LOC: EDUNIT# 17:15 → ER 17:17 → 4TH 19:02
PROVIDERS: ADMIT Surgery; ATTEND Surgery
DX: K22.2 Esophageal obstruction (principal); K21.00 Gastro-esophageal reflux disease with esophagitis, without bleeding; K44.9 Diaphragmatic hernia without obstruction or gangrene; K29.70 Gastritis, unspecified, without bleeding; K25.9 Gastric ulcer, unspecified as acute or chronic, without hemorrhage or perforation
CPT/HCPCS: 43239; 43249; 80048; 83880; 85027; 96361 ×2; 99284; G0378; 36415

== ENCOUNTER 2023-01-03 11:23 | Observation (INO) | payer MEDICARE ==
[~2023-01-03] VITALS: Ht 157.4 cm; Wt 47.8 kg
[~2023-01-03 11:23] MED LIST changes: +ASCO-262 PO; -LOSA100T57 PO; +LOSA100T58 PO
--- NOTE | 2023-01-03 11:53 | ED Respiratory ---
General Chief Complaint: Cough/Cold/Flu Symptoms Stated Complaint: DIFFICULTY BREATHING | Nursing Triage Note: pt presents to ed via pov from home with complaints of sob and cough x 3 days. pt also reports increase in generalized weakness and having 2 falls at home to which she denies any injury. Source: patient Exam Limitations: no limitations History of Present Illness Date Seen by Provider: Jan 03, 2023 Time Seen by Provider: 11:37 Initial Comments 87-year-old female presents to the ER with complaints of cough and shortness of air for the last 3 to 4 days. She states that she feels as though she cannot catch her breath. Reports generalized weakness and reports a couple of falls with no injury. She reports that she has phlegm in her throat that she is unable to clear. She denies sore throat. Denies known fevers. Denies chest pain, abdominal pain, nausea, vomiting, diarrhea. Allergies and Home Medications Allergies Coded Allergies: Niacin Preparations (Unverified Allergy, Intermediate, HIVES, 03/05/22) ALYSON Inhibitors (Unverified Allergy, Mild, 03/05/22) Calcium Channel Blocking Agent Dilt (Verified Allergy, Mild, 03/05/22) albuterol (Unverified Allergy, Mild, 03/05/22) levofloxacin (Verified Allergy, Mild, 03/05/22) pseudoephedrine (Unverified Allergy, Mild, 03/05/22) atenolol (Verified Allergy, Unknown, 03/05/22) cholestyramine (Verified Allergy, Unknown, 03/05/22) ezetimibe (Verified Allergy, Unknown, 03/05/22) rosuvastatin (Verified Allergy, Unknown, 03/05/22) tetracycline (Verified Allergy, Unknown, 03/05/22) lorazepam (Unverified Adverse Reaction, Unknown, 03/05/22) STATES "TOO STRONG" Uncoded Allergies: BETA BLOCKERS (Allergy, Mild, 04/08/09) STATINS (Allergy, Mild, 04/08/09) Patient Home Medication List Home Medication List Reviewed: Yes Ascorbate Calcium (Vitamin C) 500 Mg Tablet, 500 MG PO DAILY, (Reported) Entered as Reported by: TONO PIERCE on 06/03/22 0956 Beta-Carotene (Beta Carotene) 7,500 Mcg (49650 Unit) Capsule, 7,500 MCG PO Q48H, (Reported) Entered as Reported by: TONO PIERCE on 06/03/22 0954 Biotin (Biotin) 2,500 Mcg Capsule, 2,500 MCG PO DAILY, (Reported) Entered as Reported by: SELENE CHANDLER on 08/12/19 1352 Calcium Carbonate (Calcium) 600 Mg Tablet, 600 MG PO DAILY, (Reported) Entered as Reported by: JACQUIE GAMBOA on 09/01/17 1726 Cholecalciferol (Vitamin D3) (Vitamin D3) 25 Mcg Capsule, 25 MCG PO DAILY, (Reported) Entered as Reported by: SELENE CHANDLER on 08/12/19 1352 Losartan Potassium (Losartan Potassium) 50 Mg Tablet, 50 MG PO DAILY, (Reported) Entered as Reported by: TONO PIERCE on 06/03/22 0954 Omeprazole (Omeprazole) 40 Mg Capsule.dr, 40 MG PO Q4H Prescribed by: CHRISTIANO NOLASCO on 06/03/22 1506 Oxybutynin Chloride (Ditropan Xl) 5 Mg Tab, 2.5 MG PO DAILY, (Reported) Entered as Reported by: CIARRA MARCUM on 03/05/22 1046 [Prevagen] , 1 CAP PO DAILY, (Reported) Entered as Reported by: SELENE CHANDLER on 08/12/19 1352 Review of Systems Review of Systems Constitutional: see HPI Past Vfbeaau-Auswps-Ajhjvc Hx Patient Social History Tobacco Use?: No Substance use?: No Alcohol Use?: No Pt feels they are or have been: No Seasonal Allergies Seasonal Allergies: Yes Past Medical History Surgery/Hospitalization HX: esophagus stretching, htn Surgeries: Yes (L HAND;R ROTATOR CUFF;KNEE;BILAT BUNIONECTOMY;CATH-STENT X1;L RENAL STENT) Coronary Stent, Hysterectomy, Orthopedic, Tonsillectomy Respiratory: Yes (left diaphragm paralysis) Cardiac: Yes (CARDIAC CATH--STENT X 1 2003;LEFT RENAL ARTERY STENT) Coronary Artery Disease, High Cholesterol, Hypertension Neurological: Yes (left diaphragm paralysis) 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 Disorders: Yes 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: Hysterectomy Sexually Transmitted Disease: No HIV/AIDS: No Genitourinary: No Gastrointestinal: Yes (COLONOSCOPY 08/18/19-HEMORRHOIDS) Gastroesophageal Reflux, Chronic Constipation, Hemorrhoids, Hiatal Hernia Musculoskeletal: Yes (BILAT BUNIONECTOMY;LEFT HAND;R ROTATOR CUFF;) Arthritis, Chronic Back Pain Endocrine: No HEENT: No Loss of Vision: Denies Hearing Impairment: Denies Cancer: No Psychosocial: Yes Sleep Difficulties Integumentary: No Blood Disorders: Yes (ANEMIA) Adverse Reaction/Blood Tranf: No (N/A) Physical Exam Vital Signs - First Documented 01/03/23 11:40 Temp 37.7 Pulse 79 Resp 16 B/P (MAP) 140/79 (99) Pulse Ox 95 O2 Delivery Room Air Capillary Refill : Less Than 3 Seconds Height: 5'2.00" Weight: 129lbs. 0.2oz. 58.432823ts; 20.00 BMI Method:Stated General Appearance: WD/WN, no apparent distress Neck: supple, normal inspection Respiratory: lungs clear, normal breath sounds, no respiratory distress, no accessory muscle use Cardiovascular: regular rate, rhythm Extremities: normal range of motion, normal inspection Neurologic/Psychiatric: alert, normal mood/affect Skin: normal color, warm/dry Focused Exam Lactate Level 01/03/23 11:50: Lactic Acid Level 1.34 Lactic Acid Level Laboratory Tests Test 01/03/23 11:50 Lactic Acid Level 1.34 MMOL/L (0.50-2.00) Progress/Results/Core Measures Suspected Sepsis SIRS Temperature: Pulse: 79 Respiratory Rate: 16 Laboratory Tests 01/03/23 11:50: White Blood Count 11.0 Blood Pressure 140 /79 Mean: 99 01/03/23 11:50: Lactic Acid Level 1.34 Laboratory Tests 01/03/23 11:50: Creatinine 1.01, INR Comment 1.0, Platelet Count 185, Total Bilirubin 0.9 Results/Orders Lab Results Laboratory Tests Test 01/03/23 11:50 01/03/23 12:02 Range/Units White Blood Count 11.0 4.3-11.0 10^3/uL Red Blood Count 4.00 3.80-5.11 10^6/uL Hemoglobin 13.3 11.5-16.0 g/dL Hematocrit 40 35-52 % Mean Corpuscular Volume 99 80-99 fL Mean Corpuscular Hemoglobin 33 25-34 pg Mean Corpuscular Hemoglobin Concent 34 32-36 g/dL Red Cell Distribution Width 13.3 10.0-14.5 % Platelet Count 185 130-400 10^3/uL Mean Platelet Volume 10.3 9.0-12.2 fL Immature Granulocyte % (Auto) 0 % Neutrophils (%) (Auto) 80 H 42-75 % Lymphocytes (%) (Auto) 12 12-44 % Monocytes (%) (Auto) 7 0-12 % Eosinophils (%) (Auto) 0 0-10 % Basophils (%) (Auto) 0 0-10 % Neutrophils # (Auto) 8.9 H 1.8-7.8 10^3/uL Lymphocytes # (Auto) 1.3 1.0-4.0 10^3/uL Monocytes # (Auto) 0.8 0.0-1.0 10^3/uL Eosinophils # (Auto) 0.0 0.0-0.3 10^3/uL Basophils # (Auto) 0.0 0.0-0.1 10^3/uL Immature Granulocyte # (Auto) 0.0 0.0-0.1 10^3/uL Prothrombin Time 13.9 12.2-14.7 SEC INR Comment 1.0 0.8-1.4 Activated Partial Thromboplast Time 33 24-35 SEC Sodium Level 135 135-145 MMOL/L Potassium Level 4.1 3.6-5.0 MMOL/L Chloride Level 101 98-107 MMOL/L Carbon Dioxide Level 22 21-32 MMOL/L Anion Gap 12 5-14 MMOL/L Blood Urea Nitrogen 19 H 7-18 MG/DL Creatinine 1.01 0.60-1.30 MG/DL Estimat Glomerular Filtration Rate 54 BUN/Creatinine Ratio 19 Glucose Level 100 70-105 MG/DL Lactic Acid Level 1.34 0.50-2.00 MMOL/L Calcium Level 9.5 8.5-10.1 MG/DL Corrected Calcium 9.5 8.5-10.1 MG/DL Total Bilirubin 0.9 0.1-1.0 MG/DL Aspartate Amino Transf (AST/SGOT) 30 5-34 U/L Alanine Aminotransferase (ALT/SGPT) 15 0-55 U/L Alkaline Phosphatase 106 40-136 U/L Total Protein 7.5 6.4-8.2 GM/DL Albumin 4.0 3.2-4.5 GM/DL Influenza Type A (RT-PCR) Not Detected Not Detecte Influenza Type B (RT-PCR) Not Detected Not Detecte SARS-CoV-2 RNA (RT-PCR) Not Detected Not Detecte My Orders Orders - ROSLYN CHRISTIAN LEVEL VIAL SEALER Cbc And Automated Diff (01/03/23 11:46) Comprehensive Metabolic Panel (01/03/23 11:46) Blood Culture (01/03/23 11:46) Sputum Culture (01/03/23 11:46) Protime With Inr (01/03/23 11:46) Partial Thromboplastin Time (01/03/23 11:46) Chest 1 View, Ap/Pa Only (01/03/23 11:46) Ed Iv/Invasive Line Start (01/03/23 11:46) Vital Signs Adult Sepsis Patie Q15M (01/03/23 11:46) O2 (01/03/23 11:46) Remove Rings In Anticipation O (01/03/23 11:46) Lactic Acid Analyzer (01/03/23 11:46) Covid 19 Inhouse Test (01/03/23 11:46) Influenza A And B By Pcr (01/03/23 11:46) Ns Iv 1000 Ml (Ns Iv 1000 Ml) (01/03/23 12:30) Ceftriaxone Iv/Im (Ceftriaxone Iv/Im) (01/03/23 12:45) Azithromycin Injection (Azithromycin Inj (01/03/23 12:45) Code/Resuscitation (01/03/23 12:55) Ed Admission (Communication) (01/03/23 13:18) Medications Given in ED Current Medications Medications Dose Ordered Sig/[place] Route Start Time Stop Time Status Last Admin Dose Admin Azithromycin 500 mg/Sodium Chloride 250 ml @ 250 mls/hr ONCE ONCE IV 01/03/23 12:45 01/03/23 13:44 DC 01/03/23 13:33 250 MLS/HR Ceftriaxone Sodium 1000 mg/ Sodium Chloride 50 ml @ 100 mls/hr ONCE ONCE IV 01/03/23 12:45 01/03/23 13:14 DC 01/03/23 13:02 100 MLS/HR Vital Signs/I&O 01/03/23 11:40 Temp 37.7 Pulse 79 Resp 16 B/P (MAP) 140/79 (99) Pulse Ox 95 O2 Delivery Room Air Capillary Refill : Less Than 3 Seconds Blood Pressure Mean: 99 Progress Note : Progress Note Patient seen and evaluated, resting comfortably in bed, no acute distress. Based on exam and symptoms, septic work-up initiated including CBC, CMP, coags, sputum culture, Actiq acid, blood cultures x2, chest x-ray, COVID and flu swabs. 1240 Labs and chest x-ray reviewed. CBC shows elevated neutrophils 8.9. CMP shows elevated BUN 19, creatinine 1.01, GFR 54. Calcium normal. Coags normal. Flu and COVID-negative. Chest x-ray shows right basilar pneumonia. Due to advanced age and BUN of 19, curb 65 score is 2 which places her at a moderate risk. Due to patient having weakness and 2 falls due to weakness, I think patient should be admitted to the hospital. ER staff also reported that patient was very unsteady on her feet when walking. I spoke with Dr. Sarmiento, hospitalist, she agrees to admit patient. She will place admission orders. Diagnostic Imaging Diagonstic Imaging: Xray Plain Films/CT/US/NM/MRI: chest Comments [facility]. [place], [place] NAME: [facility] REC#: [id number] PT STATUS: REG ER : 1935 PHYSICIAN: ROSLYN CHRISTIAN APRN ADMIT DATE: 01/03/23/ER Draft Date of Exam:01/03/23 CHEST 1 VIEW, AP/PA ONLY Indication: Cough and shortness of air. Time of Exam: 12:17 PM Correlation is made with prior chest 09/19/2018. Heart size stable. There is some airspace infiltrate in the right lung base suggestive of pneumonia. Otherwise lungs are clear. No effusion or pneumothorax is detected. Impression: Right basilar pneumonia. Dictated on workstation # [id number] Dict: 01/03/23 1216 Trans: 01/03/23 1218 [facility] [id number] Interpreted by: GREGORIO VIZCAINO MD Electronically signed by: Departure Communication (Admissions) Time/Spoke to Admitting Phy: 12:40 Dr. Sarmiento, hospitalist, see progress note. Impression Primary Impression: Pneumonia Disposition: ADMITTED INPATIENT Condition: Stable Admissions Decision to Admit Reason: Admit from ER (General) Decision to Admit/Date: Jan 03, 2023 Time/Decision to Admit Time: 12:40 Departure-Patient Inst. Referrals: ANGIE BANDA MD (PCP/Family) Primary Care Physician ROSLYN CHRISTIAN APRN Jan 03, 2023 11:53
[2023-01-03 12:02] LABS: BASOPHILS % (AUTO) 0 % (0-10); EOSINOPHILS % (AUTO) 0 % (0-10); HEMATOCRIT 40 % (35-52); HEMOGLOBIN 13.3 g/dL (11.5-16.0); LYMPHOCYTES # (AUTO) 1.3 10^3/uL (1.0-4.0); LYMPHOCYTES % (AUTO) 12 % (12-44); MEAN CORPUSCULAR HEMOGLOBIN 33 pg (25-34); MEAN CORPUSCULAR HGB CONC 34 g/dL (32-36); MEAN CORPUSCULAR VOLUME 99 fL (80-99); MEAN PLATELET VOLUME 10.3 fL (9.0-12.2); MONOCYTES # (AUTO) 0.8 10^3/uL (0.0-1.0); MONOCYTES % (AUTO) 7 % (0-12); NEUTROPHILS # (AUTO) 8.9 10^3/uL (1.8-7.8); NEUTROPHILS % (AUTO) 80 % (42-75); PLATELET COUNT 185 10^3/uL (130-400)
[2023-01-03 12:13] LABS: POTASSIUM 4.1 MMOL/L (3.6-5.0); PROTHROMBIN TIME PATIENT 13.9 SEC (12.2-14.7)
[2023-01-03 12:14] LABS: CALCIUM 9.5 MG/DL (8.5-10.1)
[2023-01-03 12:15] LABS: TOTAL PROTEIN 7.5 GM/DL (6.4-8.2)
[2023-01-03 12:17] LABS: BILIRUBIN,TOTAL 0.9 MG/DL (0.1-1.0)
--- NOTE | 2023-01-03 12:18 | Diagnostic Imaging Report ---
Indication: Cough and shortness of air. Time of Exam: 12:17 PM Correlation is made with prior chest 09/19/2018. Heart size stable. There is some airspace infiltrate in the right lung base suggestive of pneumonia. Otherwise lungs are clear. No effusion or pneumothorax is detected. Impression: Right basilar pneumonia. Dictated by: Dictated on workstation # [id number]
[2023-01-03 12:19] LABS: CREATININE SERUM 1.01 MG/DL (0.60-1.30)
[2023-01-03] MEDS ORDERED: NS IV 1000 ML 1,000 ML IV SCH (12:30)
[2023-01-03] MEDS ORDERED: cefTRIAXone IV/IM 1,000 MG in NS (IVPB) 50 ML 50 ML IV ONE (12:45)
[2023-01-03] MEDS ORDERED: AZITHROMYCIN INJECTION 500 MG in NS (IVPB) 250 ML 250 ML IV ONE (12:45)
--- NOTE | 2023-01-03 13:42 | History & Physical-Hospitalist ---
ALBERT COLLAZO 01/03/23 1342: History of Present Illness HPI/Chief Complaint Pt is an 87 y/o female presenting with SOB and cough starting 4-5 days ago. She is joined by her and her daughter who helps give her hx. Pt is hard of hearing and has b/l hearing aids. While speaking, she often gets short of breath. She reports that cough is nonproductive but feels like the phelgm is caught in the throat and is not coming up. She denies GERD sxs or any chest pain or palpitations. She reports some throat pain that she thinks is due to coughing. She denies sinus pressure or any ear pain/fullness. She has been taking robutussin for sxs without relief. Her daughter states that the patients has been sick and congested about 1 week ago. She is normally followed by Dr. Mansfield in [place]. Source: patient, family Exam Limitations: no limitations Date Seen 01/03/23 Time Seen by a Provider: 13:40 Attending Physician Gagandeep Mansfield MD PCP Admitting Physician: Attending Physician: Referring Physician Date of Admission Home Medications & Allergies Home Medications Reviewed patient Home Medication Reconciliation performed by pharmacy medication reconciliations instrument/control technician and/or nursing. Patients Allergies have been reviewed. Allergies Allergies Coded Allergies Niacin Preparations (Unverified Allergy, Intermediate, HIVES, 03/05/22) ALYSON Inhibitors (Unverified Allergy, Mild, 03/05/22) Calcium Channel Blocking Agent Dilt (Verified Allergy, Mild, 03/05/22) albuterol (Unverified Allergy, Mild, 03/05/22) levofloxacin (Verified Allergy, Mild, 03/05/22) pseudoephedrine (Unverified Allergy, Mild, 03/05/22) atenolol (Verified Allergy, Unknown, 03/05/22) cholestyramine (Verified Allergy, Unknown, 03/05/22) ezetimibe (Verified Allergy, Unknown, 03/05/22) rosuvastatin (Verified Allergy, Unknown, 03/05/22) tetracycline (Verified Allergy, Unknown, 03/05/22) lorazepam (Unverified Adverse Reaction, Unknown, 03/05/22) STATES "TOO STRONG" Uncoded Allergies BETA BLOCKERS ( Allergy, Mild, 04/08/09) STATINS ( Allergy, Mild, 04/08/09) Past Zouhwyx-Kihqbv-Wmzhru Hx Patient Social History Marrital Status: Tobacco Use?: No Use of E-Cig and/or Vaping dev: No Substance use?: No Alcohol Use?: No Pt feels they are or have been: No Immunizations Up To Date Date of Influenza Vaccine: Dec 07, 2018 Seasonal Allergies Seasonal Allergies: Yes Current Status Advance Directives: No Primary Language: Syrian Preferred Spoken Language: Syrian Past Medical History Surgeries: Coronary Stent, Hysterectomy, Orthopedic Coronary Artery Disease, High Cholesterol, 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 Sexually Transmitted Disease: No HIV/AIDS: No Gastroesophageal Reflux, Chronic Constipation, Hemorrhoids, Hiatal Hernia Arthritis, Chronic Back Pain Loss of Vision: Denies Hearing Impairment: Hard of Hearing, Bilateral Hearing Aide Sleep Difficulties Blood Disorders: Yes (ANEMIA) Adverse Reaction/Blood Tranf: No (N/A) Family Medical History No Pertinent Family Hx Review of Systems Constitutional: No chills, No fever; malaise, weakness EENTM: hearing loss, hoarseness, throat pain; No ear discharge Respiratory: cough, dyspnea on exertion, short of breath Cardiovascular: No chest pain, No palpitations Gastrointestinal: No abdominal pain, No constipation, No diarrhea, No heartburn Genitourinary: No decreased output, No discharge : No Musculoskeletal: No muscle twitching, No muscle weakness Skin: No change in color, No rash Psychiatric/Neurological: Denies Anxiety, Denies Depressed Physical Exam Physical Exam Vital Signs Vital Signs - First Documented 01/03/23 01/03/23 11:40 15:50 Temp 37.7 Pulse 79 Resp 16 B/P (MAP) 140/79 (99) Pulse Ox 95 O2 Delivery Room Air FiO2 21 Capillary Refill : Less Than 3 Seconds Height, Weight, BMI Height: 5'2.00" Weight: 129lbs. 0.2oz. 58.052049sa; 20.00 BMI Method:Stated General Appearance: No Apparent Distress, Thin Eyes: Bilateral Eye Normal Inspection, Bilateral Eye PERRL HEENT: TMs Normal, Normal ENT Inspection, Pharynx Normal, Moist Mucous Membranes Neck: Normal Inspection, Non Tender Respiratory: Chest Non Tender, No Accessory Muscle Use, Crackles Cardiovascular: Regular Rate, Rhythm, No Murmur, Normal Peripheral Pulses Gastrointestinal: Normal Bowel Sounds, Non Tender, Soft Back: Normal Inspection Extremity: Normal Capillary Refill, Normal Inspection, No Pedal Edema Neurologic/Psychiatric: Alert, Oriented x3, No Motor/Sensory Deficits, Normal Mood/Affect Skin: Normal Color, Warm/Dry Lymphatic: No Adenopathy Results Results/Procedures Labs Laboratory Tests 01/03/23 11:50 Patient resulted labs reviewed. Assessment/Plan Admission Diagnosis Admission Status: Observation Reason for Inpatient Admission: Pneumonia Assessment and Plan Pneumonia - MAT protocol - Start ceftriaxone 1000 mg IV daily and azthromycin 250 mg PO daily - Albuterol sulfate 2.5 mg q6hrs - Sputum cultures sent for identification and sensitivities - Encourage IS - O2 via nasal cannula, maintain O2 above 90% - Repeat cbc tmw AM HTN - Pt has home meds that her daughter will bring in (losartan 50 mg PO daily) PHILLIP SARMIENTO MD 01/04/23 1246: Assessment/Plan Admission Diagnosis CAP Assessment and Plan Pt admitted due to CAP. Doing well but weaker than normal so will admit to obs. Continue IV abx. MAT protocol as able (albuterol allergy). PT ordered. Supervisory-Addendum Brief Verification & Attestation Participated in pt care: history, MDM, physical Personally performed: exam, history, MDM, supervision of care Care discussed with: Medical Student Procedures: n/a Results interpretation: Verified all documentation Verification and Attestation of Medical Student E/M Service A medical student performed and documented this service in my presence. I reviewed and verified all information documented by the medical student and made modifications to such information, when appropriate. I personally performed the physical exam and medical decision making. Phillip Sarmiento, Jan 04, 2023,12:46 ALBERT COLLAZO Jan 03, 2023 13:42 PHILLIP SARMIENTO MD Jan 04, 2023 12:46
[2023-01-03 14:44] VITALS: BP 165/77
[2023-01-03] MEDS ORDERED: OMEP40CA6 PO (14:59)
[2023-01-03] MEDS ORDERED: MULT-440 PO (14:59)
[2023-01-03] MEDS ORDERED: OXYB5TAB14 PO (14:59)
[2023-01-03] MEDS ORDERED: BENZONATATE 100 MG CAPSULE PO PRN (15:00)
[2023-01-03] MEDS ORDERED: MILK OF MAGNESIA 400 MG/5 ML 30 ML UDC PO PRN (15:00)
[2023-01-03] MEDS ORDERED: ANTACID SUSPENSION 30 ML UDC PO PRN (15:00)
[2023-01-03] MEDS ORDERED: MELATONIN 3 MG TABLET PO PRN (15:00)
[2023-01-03] MEDS ORDERED: ONDANSETRON INJECTION 4 MG/2 ML (SDV) IV PRN (15:00)
[2023-01-03] MEDS ORDERED: PATIENT MAY USE OWN MED,SINGLE MED PO SCH (15:00)
[2023-01-03 15:50] VITALS: BP 140/79
[2023-01-03 15:58] VITALS: BP 169/77
[2023-01-03] MEDS ORDERED: RT-ALBUTEROL SULF 2.5 MG/3 ML PRE-MIX VIAL INH PRN (17:00)
[2023-01-03] MEDS: LOSARTAN 50 MG TABLET PO SCH (18:19)
[2023-01-03 19:22] VITALS: BP 139/71
[2023-01-03] MEDS ORDERED: RT-ALBUTEROL SULF 2.5 MG/3 ML PRE-MIX VIAL INH SCH (21:00)
[2023-01-03] MEDS: guaiFENesin 600 MG TABLET PO SCH (22:07)
[2023-01-04] VITALS (7 sets, daily range): BP systolic 120–155; BP diastolic 63–81
[2023-01-04 06:36] LABS: HEMATOCRIT 34 % (35-52); HEMOGLOBIN 11.6 g/dL (11.5-16.0); MEAN CORPUSCULAR HEMOGLOBIN 33 pg (25-34); MEAN CORPUSCULAR HGB CONC 34 g/dL (32-36); MEAN CORPUSCULAR VOLUME 98 fL (80-99); MEAN PLATELET VOLUME 10.7 fL (9.0-12.2); PLATELET COUNT 175 10^3/uL (130-400); WHITE BLOOD COUNT 9.9 10^3/uL (4.3-11.0)
[2023-01-04 06:42] LABS: POTASSIUM 4.1 MMOL/L (3.6-5.0)
[2023-01-04 06:43] LABS: CALCIUM 8.9 MG/DL (8.5-10.1)
[2023-01-04 06:48] LABS: CREATININE SERUM 0.81 MG/DL (0.60-1.30)
[2023-01-04] MEDS: LOSARTAN 50 MG TABLET PO SCH (08:46)
[2023-01-04] MEDS: guaiFENesin 600 MG TABLET PO SCH ×2 (08:46→21:08)
[2023-01-04] MEDS: AZITHROMYCIN 250 MG TABLET PO SCH (08:46)
[2023-01-04] MEDS ORDERED: LOSARTAN 50 MG TABLET PO SCH (09:00)
--- NOTE | 2023-01-04 10:44 | Physical Therapy Evaluation ---
PT Evaluation-General Medical Diagnosis Admission Date Jan 03, 2023 at 14:07 Medical Diagnosis: pneumonia Onset Date: Jan 03, 2023 Therapy Diagnosis Therapy Diagnosis: difficulty walking Height/Weight Height (Feet): 5 Height (Inches): 2.00 Weight (Pounds): 129 Weight (Ounces): 0.2 Precautions Precautions/Isolations: Fall Prevention, Standard Precautions Weight Bear Status Right Lower Extremity: Right Full Weight Bearing Left Lower Extremity: Left Full Weight Bearing Referral Physician: geovanna Reason for Referral: Evaluation/Treatment Social History Home: Single Level Current Living Status: Spouse PT Steps Into Home: 2 Prior Prior Level of Function SCALE: Activities may be completed with or without assistive devices. 6-Ojgaqdgeyr-soqdlxm completes the activity by him/herself with no assistance from a helper. 5-Set-up or Clean-up Assistance-helper sets up or cleans up; patient completes activity. [place] assists only prior to or following the activity. 4-Supervision or Touching Assistance-helper provides verbal cues and/or touch ing/steadying and/or contact guard assistance as patient completes activity. Assistance may be provided throughout the activity or intermittently. 3-Partial/Moderate Assistance-helper does LESS THAN HALF the effort. [place] lifts, holds or supports trunk or limbs, but provides less than half the effort. 2-Substantial/Maximal Assistance-helper does MORE THAN HALF the effort. [place] lifts or holds trunk or limbs and provides more than half the effort. 0-Lubgmywzl-jwqbgp does ALL the effort. Patient does none of the effort to complete the activity. Or, the assistance of 2 or more helpers is required for the patient to complete the activity. If activity was not attempted, code reason: 7-Patient Refused. 9-Not Applicable-not attempted and the patient did not perform the activity before the current illness, exacerbation or injury. 10-Not Attempted due to Environmental Limitations-(lack of equipment, weather restraints, etc.). 88-Not Attempted due to Medical Conditions or Safety Concerns. Bed Mobility: 6 Transfers (B,C,W/C): 6 Gait: 6 Stairs: 6 Indoor Mobility (Ambulation): Independent Stairs: Independent PT Evaluation-Current Subjective States that her main complaint is diarhea. States that she is having to go no stop. Pain Numeric Pain Scale: 0-No Pain Objective Patient Orientation: Person, Place, Time, Situation ROM/Strength Strength Lower Extremities 3+/5 grossly Transfers Roll Left to Right (QC): 6 Sit to Lying (QC): 6 Lying to Sitting/Side of Bed(Q: 6 Sit to Stand (QC): 6 Chair/Suh-kw-Blrcv Xfer(QC): 6 Toilet Transfer (QC): 6 Gait Does the Patient Walk?: Yes Mode of Locomotion: Walk Anticipated Mode of Locomotion: Walk Walk 10 feet (QC): 6 Walk 50 ft with 2 Turns(QC): 6 Walk 150 ft (QC): 6 Distance: 1000' Gait Assistive Device: None Assessment/Needs Rehab Potential: Good PT Plan Treatment/Plan Treatment Plan: Discontinue PT Treatment Duration: Jan 04, 2023 Frequency: 1 time per week 1 visit today and then discharge Time Time In: 1015 Time Out: 1030 DATE: Jan 04, 2023 Total Billed Treatment Time: 15 Total Billed Treatment 1, EV low complexity x 15' XIOMARA BERNARD PT Jan 04, 2023 10:44
--- NOTE | 2023-01-04 11:26 | Progress Note - Hospitalist ---
ALBERT COLLAZO 01/04/23 1126: Subjective HPI/CC On Admission Pt is an 87 y/o female presenting with SOB and cough starting 4-5 days ago. She is joined by her and her daughter who helps give her hx. Pt is hard of hearing and has b/l hearing aids. While speaking, she often gets short of breath. She reports that cough is nonproductive but feels like the phelgm is caught in the throat and is not coming up. She denies GERD sxs or any chest pain or palpitations. She reports some throat pain that she thinks is due to coughing. She denies sinus pressure or any ear pain/fullness. She has been taking robutussin for sxs without relief. Her daughter states that the patients has been sick and congested about 1 week ago. She is normally followed by Dr. Mansfield in [place]. Subjective/Events-last exam Pt states that she has been coughing less since being admitted to the hospital yesterday and started on antibiotics. She reports that she was able to cough up creamy white/yellow sputum. She states that she has been able to breathe on room air without difficulty. She reports that her hearing aid batteries ran out so it is very difficult for her to hear. She states that since taking the antibiotics for her pneumonia, she has had diarrhea. She reports being unable to make it to the bathroom on at least one occasion. She is joined by her and her daughters at bedside. Pt has some mild dementia and her daughters contribute to hx as well. Review of Systems General: No Chills, No Night Sweats; Appetite (loss of appetite ) HEENT: No Head Aches, No Visual Changes Pulmonary: No Dyspnea; Cough Cardiovascular: No: Chest Pain, Palpitations Gastrointestinal: Diarrhea; No: Nausea, Vomiting Genitourinary: No Dysuria, No Hematuria Musculoskeletal: No: neck pain, shoulder pain Neurological: No: Weakness, Change in speech Focused Exam Lactate Level 01/03/23 11:50: Lactic Acid Level 1.34 Objective Exam Vital Signs Vital Signs Date Time Temp Pulse Resp B/P (MAP) Pulse Ox O2 Delivery O2 Flow Rate FiO2 01/04/23 11:19 37.1 76 18 131/73 (92) 96 Room Air 01/03/23 15:50 21 Capillary Refill : Less Than 3 Seconds General Appearance: No Apparent Distress, Thin HEENT: PERRL/EOMI Neck: Full Range of Motion, Normal Inspection Respiratory: Chest Non Tender, No Accessory Muscle Use, No Respiratory Distress, Crackles Cardiovascular: Regular Rate, Rhythm, No Gallop, No JVD, Normal Peripheral Pulses Gastrointestinal: Non Tender, Soft Extremity: Normal Capillary Refill, Normal Inspection, No Pedal Edema Neurologic/Psychiatric: Alert, Oriented x3, No Motor/Sensory Deficits, Normal Mood/Affect Skin: Normal Color, Warm/Dry Lymphatic: No Adenopathy Results/Procedures Lab Laboratory Tests 01/04/23 06:17 Patient resulted labs reviewed. Assessment/Plan Assessment and Plan Assess & Plan/Chief Complaint Pneumonia - MAT protocol - Continue ceftriaxone 1000 mg IV daily and azthromycin 250 mg PO daily - Albuterol sulfate 2.5 mg q6hrs - Sputum cultures sent for identification and sensitivities - Encourage IS - O2 via nasal cannula if needed. Currently on room air - PT referral. Encourage regular activity. Diarrhea - Add Loperamide 4 mg PO then 2 mg after each loose stool (max 16 mg/day) HTN - Continue losartan 50 mg PO daily PHILLIP SARMIENTO MD 01/04/23 1248: Assessment/Plan Assessment and Plan Assess & Plan/Chief Complaint Pt reports doing better today but having a lot of diarrhea. Can hardly make it to the bathroom. Discussed abx associated diarrhea. Tolerates imodium so will start. CHAIM shannon as they think it caused her to be confused overnight. Hopefully home tomorrow if diarrhea improved. Did well with PT. Pt hopes to be out of the hospital by 01/07 due to it being her 70th anniversary with her . Supervisory-Addendum Brief Verification & Attestation Participated in pt care: history, MDM, physical Personally performed: exam, history, MDM, supervision of care Care discussed with: Medical Student Procedures: n/a Results interpretation: Verified all documentation Verification and Attestation of Medical Student E/M Service A medical student performed and documented this service in my presence. I reviewed and verified all information documented by the medical student and made modifications to such information, when appropriate. I personally performed the physical exam and medical decision making. Phillip Sarmiento, Jan 04, 2023,12:46 ALBERT COLLAZO Jan 04, 2023 11:26 PHILLIP SARMIENTO MD Jan 04, 2023 12:48
[2023-01-04] MEDS ORDERED: LOPERAMIDE 2 MG CAPSULE PO PRN (12:45)
[2023-01-04] MEDS ORDERED: cefTRIAXone IV/IM 1,000 MG in NS (IVPB) 50 ML 50 ML IV SCH (13:00)
[2023-01-04] MEDS: LACTOBACILLUS ACIDOPHILUS (PROBIOTIC) CAPSULE PO SCH ×2 (13:07→17:57)
[2023-01-05 04:04] VITALS: BP 154/83
[2023-01-05 07:41] VITALS: BP 160/81
[2023-01-05] MEDS ORDERED: CEPH500T PO (08:38)
[2023-01-05] MEDS ORDERED: AZIT250T12 PO (08:38)
--- NOTE | 2023-01-05 08:39 | Discharge Inst-Simple/Standard ---
Discharge Inst-Standard Discharge Medications New, Converted or Re-Newed RX: Transmitted to Pharmacy Patient Instructions/Follow Up Plan of Care/Instructions/FU: Please continue to take your medications as written. Please follow up with your primary care doctor to follow up this hospital stay. Happy Anniversary! Activity as Tolerated: Yes Discharge Diet: No Restrictions Return to The Hospital For: Chest pain, shortness of breath, fever, weakness, if you feel you are getting worse. PHILLIP GOMES MD Jan 05, 2023 08:39
[2023-01-05] MEDS: AZITHROMYCIN 250 MG TABLET PO SCH (08:54)
[2023-01-05] MEDS: guaiFENesin 600 MG TABLET PO SCH (08:54)
[2023-01-05] MEDS: LOSARTAN 50 MG TABLET PO SCH (08:54)
[2023-01-05] MEDS: LACTOBACILLUS ACIDOPHILUS (PROBIOTIC) CAPSULE PO SCH (08:55)
--- NOTE | 2023-01-05 10:00 | Discharge Summary ---
Diagnosis/Chief Complaint Date of Admission Jan 03, 2023 at 14:07 Date of Discharge 01/05/2023 Discharge Date: Jan 05, 2023 Discharge Time: 09:57 Admission Diagnosis CAP Primary Care Gagandeep Mansfield MD Discharge Diagnosis CAP Discharge Summary Discharge Physical Exam Allergies: Coded Allergies: Niacin Preparations (Unverified Allergy, Intermediate, HIVES, 03/05/22) ALYSON Inhibitors (Unverified Allergy, Mild, 03/05/22) Calcium Channel Blocking Agent Dilt (Verified Allergy, Mild, 03/05/22) albuterol (Unverified Allergy, Mild, 03/05/22) levofloxacin (Verified Allergy, Mild, 03/05/22) pseudoephedrine (Unverified Allergy, Mild, 03/05/22) atenolol (Verified Allergy, Unknown, 03/05/22) cholestyramine (Verified Allergy, Unknown, 03/05/22) ezetimibe (Verified Allergy, Unknown, 03/05/22) rosuvastatin (Verified Allergy, Unknown, 03/05/22) tetracycline (Verified Allergy, Unknown, 03/05/22) benzonatate (Verified Adverse Reaction, Unknown, confusion, 01/04/23) lorazepam (Unverified Adverse Reaction, Unknown, 03/05/22) STATES "TOO STRONG" Uncoded Allergies: BETA BLOCKERS (Allergy, Mild, 04/08/09) STATINS (Allergy, Mild, 04/08/09) Vitals & I&Os Vital Signs Date Time Temp Pulse Resp B/P (MAP) Pulse Ox O2 Delivery O2 Flow Rate FiO2 01/05/23 08:00 94 Room Air 01/05/23 07:41 36.2 79 18 160/81 (107) 01/03/23 15:50 21 General Appearance: No Apparent Distress, Thin HEENT: PERRL/EOMI, Normal ENT Inspection, Pharynx Normal Respiratory: Chest Non Tender, Lungs Clear, No Accessory Muscle Use, No Respiratory Distress Cardiovascular: Regular Rate, Rhythm, No Gallop, No Murmur, Normal Peripheral Pulses Gastrointestinal: Normal Bowel Sounds, Non Tender, Soft Extremity: Normal Capillary Refill, Normal Inspection, Non Tender, No Calf Tenderness Skin: Normal Color, Warm/Dry Neurologic/Psychiatric: Alert, Oriented x3, No Motor/Sensory Deficits, Normal Mood/Affect Hospital Course Was the Problem List Reviewed?: Yes Pt is an 87 y/o female who came into the ER 01/03/2023 with fever, weakness, SOB, and cough. CXR showed evidence of pneumonia and she was admitted for IV antibiotics and observation. Given ceftriaxone and azithromycin IV as well as albuterol as needed. Pt was on room air the whole hospital course. Was given loperamide d/t diarrhea. Labs (last 24 hrs) Microbiology 01/03/23 Blood Culture - Preliminary, Resulted Patient resulted labs reviewed. Imaging: Reviewed Imaging Films, Reviewed Imaging Report Discharge Home Medications: Active Scripts Active Cephalexin 500 Mg Tablet 500 Mg PO BID Azithromycin 250 Mg Tablet 250 Mg PO DAILY Reported Centravites 50 Plus (Multivitamin W/Iron, Minerals) 1 Each Tablet 1 Each PO DAILY Omeprazole 40 Mg Capsule.dr 40 Mg PO DAILY Oxybutynin Chloride 5 Mg Tablet 2.5 Mg PO DAILY TAKES OF A 5MG TAB Beta Carotene (Beta-Carotene) 7,500 Mcg (86314 Unit) Capsule 7,500 Mcg PO Q48H Losartan Potassium 50 Mg Tablet 50 Mg PO DAILY PATIENT ONLY TAKES ZYDUS BRAND Biotin 2,500 Mcg Capsule 2,500 Mcg PO DAILY Vitamin D3 (Cholecalciferol (Vitamin D3)) 25 Mcg Capsule 25 Mcg PO DAILY Calcium (Calcium Carbonate) 600 Mg Tablet 600 Mg PO DAILY Instructions to patient/family Please see electronic discharge instructions given to patient. ALBERT COLLAZO Jan 05, 2023 10:00
[2023-01-05 10:50] VITALS: BP 160/81
== END 2023-01-05 10:10 | disposition home or self-care (01) ==
LOC: EDUNIT# 11:23 → ER 11:25 → 4TH 14:07 → UNDOADMOB 14:07 → 4TH 14:29 → UNDODISOB 01-05 10:10
PROVIDERS: ADMIT Family Medicine; ATTEND Family Medicine
DX: J18.9 Pneumonia, unspecified organism (principal); R19.7 Diarrhea, unspecified; I10 Essential (primary) hypertension
CPT/HCPCS: 71045; 80048; 80053; 83605; 85025; 85027; 85610; 85730; 87040; 87636; 94640; 94664; 96365; 96367 ×2; 97161; 99284; G0378; 36415